=== PATIENT | male | born 1970 | race Asian ===

== ENCOUNTER 2021-06-05 16:02 | Outpatient (REF) | payer OTHER, SELFPAY ==
[2021-06-05 18:11] LABS: MANUAL DIFF FLAG NO
[2021-06-05 18:12] LABS: Basophils Percent Auto 0.4 % (0-2); Eosinophils Absolute Auto 0.1 X10*3/uL (0.0-0.4); Eosinophils Percent Auto 1.1 % (0-4); Hematocrit 42.1 % (42-52); Hemoglobin 14.6 g/dl (14.0-18.0); Imm Gran Abs Auto 0.01 X10*3/uL (0.00-0.03); Imm Gran Pct Auto 0.1 % (0.0-0.4); Lymphocytes Absolute Auto 2.8 X10*3/uL (1.2-4.9); Lymphocytes Percent Auto 38.1 % (20-40); Mean Corpuscular HGB Conc 34.7 g/dl (31.0-36.0); Mean Corpuscular Hemoglobin 32.1 pg (27.0-33.0); Mean Corpuscular Volume 92.5 fL (80-98); Mean Platelet Volume 10.9 fL (9.4-12.4); Monocytes Absolute Auto 0.5 X10*3/uL (0.1-1.2); Neutrophils Absolute Auto 3.9 X10*3/uL (2.0-8.3); Neutrophils Percent Auto 53.3 % (45-73); Platelet Count 188 X10*3/uL (160-400); Red Blood Count 4.55 X10*6/uL (4.60-5.80); Red Cell Distribution Width 11.9 % (11.0-16.0); White Blood Count 7.3 X10*3/uL (4.8-10.8)
[2021-06-05 18:20] LABS: Estimated Average Glucose 292 mg/dL; Hemoglobin A1c % 11.8 %
[2021-06-05 18:31] LABS: Creatinine Urine 114.53 mg/dL; Microalbum/Creatinine Ratio Ur 6.1 ug/mg cr
[2021-06-05 18:36] LABS: Alanine Aminotransferase 11 U/L (0-40); Albumin Level 4.3 g/dL (3.5-5.0); Alkaline Phosphatase 86 U/L (39-117); Anion Gap 12 (12-20); Aspartate Amino Transferase 9 U/L (5-37); Bilirubin Total 0.9 mg/dL (0.0-1.0); Blood Urea Nitrogen 9 mg/dL (9-16); Calcium 9.7 mg/dL (8.4-10.2); Carbon Dioxide 27 mmol/L (22-29); Chloride 102 mmol/L (96-108); Cholesterol 198 mg/dL; Estimated Glomerular Filt Rate > 60; Glucose Random 200 mg/dL (60-115); HDL Cholesterol 43 mg/dL; LDL Cholesterol Calculated 135 mg/dl; Potassium 4.3 mmol/L (3.3-5.1); Sodium 137 mmol/L (135-145); Total Protein 6.9 g/dL (6.5-8.0); Triglycerides 103 mg/dL
== END 2021-06-05 16:03 | disposition home or self-care (01) ==
LOC: HO.LAB 16:02
PROVIDERS: PCP Internal Medicine; Visit Provider Internal Medicine
DX: E78.00 Pure hypercholesterolemia, unspecified (principal); E11.9 Type 2 diabetes mellitus without complications; I25.10 Atherosclerotic heart disease of native coronary artery without angina pectoris
CPT/HCPCS: 36415; 80053; 80061; 82043; 83036; 85025

== ENCOUNTER → 2021-06-07 15:34 | Outpatient (BNVA) | payer OTHER, SELFPAY | PROVIDERS: PCP Internal Medicine; Referring Provider Internal Medicine; Visit Provider Internal Medicine Cardiovascular Disease | DX: I20.8 Other forms of angina pectoris (principal) | CPT/HCPCS: 93005; 99212 ==

== ENCOUNTER → 2021-07-10 13:12 | Outpatient (BNVA) | payer OTHER, SELFPAY | PROVIDERS: PCP Internal Medicine; Referring Provider Internal Medicine; Visit Provider Nurse Practitioner Family | DX: I25.10 Atherosclerotic heart disease of native coronary artery without angina pectoris (principal); E78.5 Hyperlipidemia, unspecified; Z98.890 Other specified postprocedural states; Z95.1 Presence of aortocoronary bypass graft | CPT/HCPCS: 99212 ==

== ENCOUNTER 2021-07-20 15:14 | Outpatient (REF) | payer OTHER, SELFPAY ==
[2021-07-20 15:29] LABS: MANUAL DIFF FLAG NO
[2021-07-20 15:46] LABS: Basophils Percent Auto 0.3 % (0-2); Eosinophils Absolute Auto 0.3 X10*3/uL (0.0-0.4); Eosinophils Percent Auto 3.3 % (0-4); Hematocrit 38.2 % (42-52); Hemoglobin 12.7 g/dl (14.0-18.0); Imm Gran Abs Auto 0.03 X10*3/uL (0.00-0.03); Imm Gran Pct Auto 0.3 % (0.0-0.4); Lymphocytes Absolute Auto 1.9 X10*3/uL (1.2-4.9); Lymphocytes Percent Auto 21.3 % (20-40); Mean Corpuscular HGB Conc 33.2 g/dl (31.0-36.0); Mean Corpuscular Hemoglobin 31.8 pg (27.0-33.0); Mean Corpuscular Volume 95.5 fL (80-98); Mean Platelet Volume 9.7 fL (9.4-12.4); Monocytes Absolute Auto 0.8 X10*3/uL (0.1-1.2); Monocytes Percent Auto 8.8 % (2-11); Neutrophils Absolute Auto 5.9 X10*3/uL (2.0-8.3); Platelet Count 221 X10*3/uL (160-400); Red Cell Distribution Width 13.3 % (11.0-16.0)
[2021-07-20 15:59] LABS: Estimated Average Glucose 154 mg/dL
[2021-07-20 16:08] LABS: Alanine Aminotransferase 21 U/L (0-40); Albumin Level 3.9 g/dL (3.5-5.0); Alkaline Phosphatase 91 U/L (39-117); Anion Gap 11 (12-20); Aspartate Amino Transferase 16 U/L (5-37); Bilirubin Total 0.4 mg/dL (0.0-1.0); Blood Urea Nitrogen 16 mg/dL (9-16); Calcium 8.9 mg/dL (8.4-10.2); Carbon Dioxide 27 mmol/L (22-29); Chloride 107 mmol/L (96-108); Estimated Glomerular Filt Rate > 60; Glucose Random 99 mg/dL (60-115); Potassium 4.4 mmol/L (3.3-5.1); Sodium 141 mmol/L (135-145); Total Protein 6.7 g/dL (6.5-8.0)
== END 2021-07-20 15:15 | disposition home or self-care (01) ==
LOC: HO.LAB 15:14
PROVIDERS: PCP Internal Medicine; Visit Provider Internal Medicine
DX: I25.10 Atherosclerotic heart disease of native coronary artery without angina pectoris (principal); I10 Essential (primary) hypertension; E11.9 Type 2 diabetes mellitus without complications; Z95.1 Presence of aortocoronary bypass graft
CPT/HCPCS: 36415; 80053; 83036; 85025

== ENCOUNTER → 2021-08-14 13:12 | Outpatient (REF) | payer OTHER, SELFPAY ==
--- NOTE | 2021-08-14 13:16 | CA_ITS ---
Transthoracic Echocardiogram Patient (Last, First, Middle): Vince Bruno, Gender: Male Date of : 1970 Age: 50 Procedure Date: 08/14/2021 Procedure Type: Transthoracic Echocardiogram Location: OP Height: 157.48 cm Weight: 76.01 kg BSA: 1.77 m2 Heart Rate: bpm BP: 102 / 70 mmHg Carpenter Packing: SHERMAN Referring MD: Myra Araujo BOOTH USHERRyan Symptoms: Z95.1 - Presence of aortocoronary bypass graft Conclusions: - 1. Low normal LV systolic function with normal filling pattern with regional wall motion abnormality in RCA territory 2. Normal cardiac valvular Doppler 3. Normal RV systolic pressure 4. No gross pericardial effusion Findings Left Ventricle Normal left ventricular cavity size. There is normal left ventricular wall thickness. The left ventricular systolic function is low normal. The visually estimated ejection fraction is between 50-55%. Spectral Doppler is indicative of a normal filling pattern. Wall Motion Rest Echo Findings The inferoseptal wall and basal inferior segment are hypokinetic. The apical septum is akinetic. All other scored wall segments showed normal motion. Right Ventricle Normal right ventricular cavity size and systolic function. Atria Both atria are normal in size. There is no evidence of interatrial shunt. Aortic Valve Normal aortic valve structure and function. There is no aortic valve stenosis. There is no aortic valve regurgitation. Mitral Valve Normal mitral valve structure and function. There is trace mitral valve regurgitation. There is no mitral valve stenosis. Pulmonic Valve The pulmonic valve is likely normal. There is trace pulmonic valve regurgitation. Tricuspid Valve Normal tricuspid valve structure. There is trace tricuspid valve regurgitation. The right ventricular systolic pressure is normal. The right ventricular systolic pressure is 24 mmHg. Normal right atrial pressure. There is no evidence of pulmonary hypertension. Great Vessels All visible segments of the aorta are normal in size. The pulmonary artery was not well visualized. Venous The inferior vena cava is normal in size and collapses greater than 50% with inspiration. Pericardium/Pleural There is no evidence of pericardial effusion. Prior Study Comparison Changes noted compared to prior study dated: 07/15/2019. Regional wall motion abnormalities are noted on this study Measurements 2D Linear Measurements IVSd: 0.96 0.6-0.9/0.6-1.0 cm LVIDd: 4.38 3.9-5.3/4.2-5.9 cm LVIDd Index: 2.47 2.4-3.2/2.2-3.1 cm/m2 LVIDs: 2.70 2.0-3.6 cm LVPWd: 1.13 0.7-1.1 cm Ao Root: 3.10 2.1-3.5 cm LA Diam: 3.90 2.7-3.8/3.0-4.0 cm LAIDs Index: 2.20 1.5-2.3 cm/m2 LV Mass: 193.89 67-162/88-224 g LV Mass Index: 109.54 43-95/49-115 g/m2 LVOT Diam: 2.00 3.0+(-)1.3 cm 2D Systolic Function EF 4C: 54.90 >55% Mitral Valve MV Pk E: 0.60 MV PK A: 0.36 MV Decel Time: 228.00 E/A: 1.70 E'Lateral: 12.70 E'Medial: 5.33 E/E' Med: 11.30 E/E' Lat: 4.70 PHT: 67.00 MVA PHT: 3.28 Decel Blackford: 2.63 Aortic Valve AoV Pk Walter: 1.14 AoV Pk Grad: 5.00 LVOT LVOT Pk Walter: 1.08 LVOT Mn Walter: 0.74 LVOT VTI: 0.25 LVOT Pk Grad: 5.00 LVOT Mn Grad: 3.00 LVOT Diam: 2.00 LVOT Area: 3.14 Diastolic Function MV Pk E: 0.60 MV Pk A: 0.36 E/A: 1.70 E'Medial: 5.33 E/E' Med: 11.30 E' Laterial: 12.70 E/E' Lat: 4.70 Right Ventricle TAPSE (mm): 1.47 Tricuspid Valve TR Pk Walter: 2.29 TR Pk Grad: 21.00 RA Press: 3.00 RVSP: 24.00 Great Vessels Aorta Ao Root-2D: 3.10 2.0-3.7 cm Updated in Other Vendor System with Status of Final Keaton Rodriguez MD electronically signed on 08/16/2021 9:52:20 AM with status of Final
== END ==
LOC: HO.CARD 13:12
PROVIDERS: Visit Provider Nurse Practitioner Family
DX: I25.10 Atherosclerotic heart disease of native coronary artery without angina pectoris (principal); Z95.1 Presence of aortocoronary bypass graft
CPT/HCPCS: 93306

== ENCOUNTER 2021-09-27 13:25 | Outpatient (REF) | payer OTHER, SELFPAY ==
[2021-09-27 15:33] LABS: Alanine Aminotransferase 29 U/L (0-40); Albumin Level 4.1 g/dL (3.5-5.0); Alkaline Phosphatase 80 U/L (39-117); Anion Gap 10 (12-20); Aspartate Amino Transferase 15 U/L (5-37); Bilirubin Total 0.5 mg/dL (0.0-1.0); Blood Urea Nitrogen 14 mg/dL (9-16); Calcium 9.4 mg/dL (8.4-10.2); Carbon Dioxide 29 mmol/L (22-29); Chloride 107 mmol/L (96-108); Cholesterol 108 mg/dL; Estimated Glomerular Filt Rate > 60; Glucose Fasting 118 mg/dL (60-99); HDL Cholesterol 32 mg/dL; LDL Cholesterol Calculated 63 mg/dl; Potassium 4.6 mmol/L (3.3-5.1); Sodium 141 mmol/L (135-145); Total Protein 6.9 g/dL (6.5-8.0); Triglycerides 69 mg/dL
== END 2021-09-27 13:26 | disposition home or self-care (01) ==
LOC: HO.LAB 13:25
PROVIDERS: PCP Internal Medicine; Referring Provider Internal Medicine; Visit Provider Nurse Practitioner Family
DX: I25.10 Atherosclerotic heart disease of native coronary artery without angina pectoris (principal); E78.5 Hyperlipidemia, unspecified; Z95.1 Presence of aortocoronary bypass graft; Z79.899 Other long term (current) drug therapy
CPT/HCPCS: 36415; 80053; 80061; 93005; 99212

== ENCOUNTER → 2021-10-04 11:35 | Outpatient (REF) | payer OTHER, SELFPAY ==
--- NOTE | 2021-10-04 11:43 | CA_ITS ---
Transthoracic Echocardiogram Patient (Last, First, Middle): Vince Bruno, Gender: Male Date of : 1970 Age: 51 Procedure Date: 10/04/2021 Procedure Type: Transthoracic Echocardiogram Location: OP Height: 157.4 cm Weight: 76. kg BSA: 1.77 m2 Heart Rate: bpm BP: 104 / 62 mmHg Business Intelligence Developer: SHERMAN Referring MD: Myra Araujo ENGRAVER WOOD-C Symptoms: Z95.1 - Presence of aortocoronary bypass graft Study Quality: Good ECG Rhythm: Sinus Conclusions: - The left ventricular systolic function is hyperdynamic. The calculated ejection fraction is 72% by biplane method. - There is mildly decreased right ventricular systolic function. Findings Procedure Information Contrast agent, definity, is being given per protocol without apparent complications. Left Ventricle Normal left ventricular cavity size. The left ventricular systolic function is hyperdynamic. The calculated ejection fraction is 72% by biplane method. There is no evidence of regional wall motion abnormalities. Right Ventricle Normal right ventricular cavity size. There is mildly decreased right ventricular systolic function. TAPSE 1.65cm. Prior Study Comparison Changes noted compared to prior study dated: 08/14/2021. Previously described wall motion abnormalities not appreciated. LVEF appears higher. Measurements 2D Linear Measurements LVIDd: 4.02 3.9-5.3/4.2-5.9 cm LVIDs: 2.92 2.0-3.6 cm 2D Systolic Function EF 4C: 67.60 >55% EF 2C: 77.00 >55% EF BiP: 72.20 >55% Mitral Valve MV Pk E: 0.58 MV PK A: 0.51 MV Decel Time: 217.00 E/A: 1.10 E'Lateral: 11.20 E'Medial: 4.90 E/E' Med: 11.80 E/E' Lat: 5.20 PHT: 64.00 MVA PHT: 3.44 Decel Power: 2.66 Diastolic Function MV Pk E: 0.58 MV Pk A: 0.51 E/A: 1.10 E'Medial: 4.90 E/E' Med: 11.80 E' Laterial: 11.20 E/E' Lat: 5.20 Updated in Other Vendor System with Status of Final Reinaldo Prasad MD electronically signed on 10/06/2021 9:12:47 AM with status of Final
== END ==
LOC: HO.CARD 11:35
PROVIDERS: Visit Provider Nurse Practitioner Family
DX: Z95.1 Presence of aortocoronary bypass graft (principal)
CPT/HCPCS: 93308; Q9957

== ENCOUNTER 2021-10-15 16:10 | Outpatient (REF) | payer OTHER, SELFPAY ==
[2021-10-15 16:31] LABS: MANUAL DIFF FLAG NO
[2021-10-15 16:35] LABS: Basophils Percent Auto 0.2 % (0-2); Eosinophils Absolute Auto 0.1 X10*3/uL (0.0-0.4); Hematocrit 47.5 % (42.0-52.0); Imm Gran Abs Auto 0.03 X10*3/uL (0.00-0.03); Imm Gran Pct Auto 0.3 % (0.0-0.4); Lymphocytes Absolute Auto 2.8 X10*3/uL (1.2-4.9); Lymphocytes Percent Auto 30.4 % (20-40); Mean Corpuscular HGB Conc 33.7 g/dl (31.0-36.0); Mean Corpuscular Hemoglobin 30.7 pg (27.0-33.0); Mean Platelet Volume 10.2 fL (9.4-12.4); Monocytes Absolute Auto 0.8 X10*3/uL (0.1-1.2); Monocytes Percent Auto 8.6 % (2-11); Neutrophils Absolute Auto 5.6 x10*3/uL (2.0-8.3); Neutrophils Percent Auto 59.5 % (45-73); Platelet Count 184 X10*3/uL (160-400); Red Blood Count 5.22 X10*6/uL (4.60-5.80); Red Cell Distribution Width 11.8 % (11.0-16.0); White Blood Count 9.4 X10*3/uL (4.8-10.8)
[2021-10-15 16:53] LABS: Estimated Average Glucose 143 mg/dL; Hemoglobin A1c % 6.6 %
[2021-10-15 17:21] LABS: Alanine Aminotransferase 26 U/L (0-40); Albumin Level 4.3 g/dL (3.5-5.0); Alkaline Phosphatase 77 U/L (39-117); Anion Gap 11 (12-20); Aspartate Amino Transferase 18 U/L (5-37); Bilirubin Total 0.8 mg/dL (0.0-1.0); Blood Urea Nitrogen 13 mg/dL (9-16); Calcium 9.8 mg/dL (8.4-10.2); Carbon Dioxide 30 mmol/L (22-29); Chloride 107 mmol/L (96-108); Cholesterol 107 mg/dL; Estimated Glomerular Filt Rate > 60; Glucose Random 79 mg/dL (60-115); HDL Cholesterol 33 mg/dL; LDL Cholesterol Calculated 62 mg/dl; Potassium 4.4 mmol/L (3.3-5.1); Sodium 144 mmol/L (135-145); Total Protein 7.2 g/dL (6.5-8.0); Triglycerides 64 mg/dL
== END 2021-10-15 16:11 | disposition home or self-care (01) ==
LOC: HO.LAB 16:10
PROVIDERS: PCP Internal Medicine; Visit Provider Internal Medicine
DX: I25.10 Atherosclerotic heart disease of native coronary artery without angina pectoris (principal); E11.9 Type 2 diabetes mellitus without complications; E78.00 Pure hypercholesterolemia, unspecified
CPT/HCPCS: 36415; 80053; 80061; 83036; 85025

== ENCOUNTER → 2022-04-15 14:44 | Outpatient (BNVA) | payer OTHER, SELFPAY | PROVIDERS: PCP Internal Medicine; Referring Provider Internal Medicine; Visit Provider Internal Medicine Cardiovascular Disease | DX: I25.10 Atherosclerotic heart disease of native coronary artery without angina pectoris (principal); Z95.1 Presence of aortocoronary bypass graft | CPT/HCPCS: 93005; 99212 ==

== ENCOUNTER 2022-04-19 16:03 | Outpatient (REF) | payer OTHER, SELFPAY ==
[2022-04-19 16:31] LABS: MANUAL DIFF FLAG NO
[2022-04-19 17:09] LABS: Basophils Percent Auto 0.2 % (0-2); Eosinophils Absolute Auto 0.1 X10*3/uL (0.0-0.4); Hematocrit 43.8 % (42.0-52.0); Hemoglobin 15.1 g/dl (14.0-18.0); Imm Gran Abs Auto 0.03 X10*3/uL (0.00-0.03); Imm Gran Pct Auto 0.3 % (0.0-0.4); Lymphocytes Absolute Auto 2.1 X10*3/uL (1.2-4.9); Lymphocytes Percent Auto 23.2 % (20-40); Mean Corpuscular HGB Conc 34.5 g/dl (31.0-36.0); Mean Corpuscular Hemoglobin 30.8 pg (27.0-33.0); Mean Corpuscular Volume 89.2 fL (80.0-98.0); Monocytes Percent Auto 11.3 % (2-11); Neutrophils Absolute Auto 5.7 x10*3/uL (2.0-8.3); Platelet Count 223 X10*3/uL (160-400); Red Blood Count 4.91 X10*6/uL (4.60-5.80); Red Cell Distribution Width 11.8 % (11.0-16.0); White Blood Count 8.9 X10*3/uL (4.8-10.8)
[2022-04-19 17:35] LABS: Alanine Aminotransferase 33 U/L (0-40); Albumin Level 4.2 g/dL (3.5-5.0); Alkaline Phosphatase 84 U/L (39-117); Anion Gap 17 (12-20); Aspartate Amino Transferase 32 U/L (5-37); Bilirubin Total 0.9 mg/dL (0.0-1.0); Blood Urea Nitrogen 14 mg/dL (9-16); Calcium 9.4 mg/dL (8.4-10.2); Carbon Dioxide 21 mmol/L (22-29); Chloride 106 mmol/L (96-108); Estimated Glomerular Filt Rate > 60; Glucose Random 81 mg/dL (60-115); Potassium 4.2 mmol/L (3.3-5.1); Sodium 140 mmol/L (135-145); Total Protein 6.9 g/dL (6.5-8.0)
[2022-04-19 17:48] LABS: Estimated Average Glucose 143 mg/dL; Hemoglobin A1c % 6.6 %
== END 2022-04-19 16:04 | disposition home or self-care (01) ==
LOC: HO.LAB 16:03
PROVIDERS: PCP Internal Medicine; Visit Provider Internal Medicine
DX: I25.10 Atherosclerotic heart disease of native coronary artery without angina pectoris (principal); E78.00 Pure hypercholesterolemia, unspecified; E11.9 Type 2 diabetes mellitus without complications
CPT/HCPCS: 36415; 80053; 83036; 85025

== ENCOUNTER → 2022-07-22 15:12 | Outpatient (BNVA) | payer OTHER, SELFPAY | PROVIDERS: PCP Internal Medicine; Referring Provider Internal Medicine; Visit Provider Internal Medicine Cardiovascular Disease | DX: I25.10 Atherosclerotic heart disease of native coronary artery without angina pectoris (principal); E78.5 Hyperlipidemia, unspecified; Z95.1 Presence of aortocoronary bypass graft | CPT/HCPCS: 99212 ==

== ENCOUNTER → 2022-08-14 14:50 | Outpatient (REF) | payer OTHER, SELFPAY ==
--- NOTE | 2022-08-14 14:54 | HM_ITS ---
Conclusion: 1. Patient was monitored for total period of 3 days and 1 hour 2. Baseline was normal sinus with average heart of 78 beats per minute 3. No significant pauses or bradycardia noted 4. Very rare ectopy noted 5. Patient reported 5 events with racing of the heart and shortness of breath correlating with sinus rhythm MTDD
== END ==
LOC: HO.CARD 14:50
PROVIDERS: PCP Internal Medicine; Visit Provider Internal Medicine
DX: R00.2 Palpitations (principal); Z95.5 Presence of coronary angioplasty implant and graft
CPT/HCPCS: 93242

== ENCOUNTER 2022-10-08 12:36 | Outpatient (REF) | payer OTHER, SELFPAY ==
[2022-10-08 13:02] LABS: MANUAL DIFF FLAG NO
[2022-10-08 13:11] LABS: Basophils Absolute Auto 0.1 X10*3/uL (0.0-0.2); Basophils Percent Auto 0.8 % (0-2); Eosinophils Absolute Auto 0.1 X10*3/uL (0.0-0.4); Eosinophils Percent Auto 1.6 % (0-4); Hematocrit 44.7 % (42.0-52.0); Hemoglobin 15.2 g/dl (14.0-18.0); Imm Gran Abs Auto 0.02 X10*3/uL (0.00-0.03); Imm Gran Pct Auto 0.3 % (0.0-0.4); Lymphocytes Percent Auto 31.8 % (20-40); Mean Corpuscular Hemoglobin 30.8 pg (27.0-33.0); Mean Corpuscular Volume 90.7 fL (80.0-98.0); Mean Platelet Volume 9.7 fL (9.4-12.4); Monocytes Absolute Auto 0.7 X10*3/uL (0.1-1.2); Monocytes Percent Auto 11.4 % (2-11); Neutrophils Absolute Auto 3.4 x10*3/uL (2.0-8.3); Neutrophils Percent Auto 54.1 % (45-73); Platelet Count 234 X10*3/uL (160-400); Red Blood Count 4.93 X10*6/uL (4.60-5.80); Red Cell Distribution Width 12.1 % (11.0-16.0); White Blood Count 6.3 X10*3/uL (4.8-10.8)
[2022-10-08 13:59] LABS: Estimated Average Glucose 123 mg/dL; Hemoglobin A1c % 5.9 %
[2022-10-08 14:40] LABS: Alanine Aminotransferase 16 U/L (0-40); Alkaline Phosphatase 117 U/L (39-117); Anion Gap 10 (12-20); Aspartate Amino Transferase 16 U/L (5-37); Bilirubin Total 0.6 mg/dL (0.0-1.0); Blood Urea Nitrogen 20 mg/dL (9-16); Calcium 8.8 mg/dL (8.4-10.2); Carbon Dioxide 24 mmol/L (22-29); Chloride 109 mmol/L (96-108); Cholesterol 133 mg/dL; Estimated Glomerular Filt Rate > 60; Glucose Fasting 134 mg/dL (60-99); HDL Cholesterol 40 mg/dL; LDL Cholesterol Calculated 86 mg/dl; Potassium 4.5 mmol/L (3.3-5.1); Sodium 138 mmol/L (135-145); Total Protein 6.6 g/dL (6.5-8.0); Triglycerides 38 mg/dL
[2022-10-08 14:55] LABS: Prostate Specific Antigen 0.34 ng/mL (<0.05-4.0)
[2022-10-08 15:33] LABS: Creatinine Urine 88.07 mg/dL; Microalbumin Urine < 5.0 mg/L
== END 2022-10-08 12:37 | disposition home or self-care (01) ==
LOC: HO.LAB 12:36
PROVIDERS: PCP Internal Medicine; Visit Provider Internal Medicine
DX: Z12.5 Encounter for screening for malignant neoplasm of prostate (principal); E78.00 Pure hypercholesterolemia, unspecified; I25.10 Atherosclerotic heart disease of native coronary artery without angina pectoris; E11.9 Type 2 diabetes mellitus without complications
CPT/HCPCS: 36415; 80053; 80061; 82043; 83036; 84153; 85025

== ENCOUNTER 2022-12-23 11:01 | Outpatient (REF) | payer OTHER, SELFPAY ==
[2022-12-23 14:03] LABS: MANUAL DIFF FLAG NO
[2022-12-23 14:18] LABS: Basophils Percent Auto 0.6 % (0-2); Eosinophils Absolute Auto 0.1 X10*3/uL (0.0-0.4); Hematocrit 46.4 % (42.0-52.0); Hemoglobin 15.8 g/dl (14.0-18.0); Imm Gran Abs Auto 0.02 X10*3/uL (0.00-0.03); Imm Gran Pct Auto 0.3 % (0.0-0.4); Lymphocytes Absolute Auto 2.1 X10*3/uL (1.2-4.9); Lymphocytes Percent Auto 30.4 % (20-40); Mean Corpuscular HGB Conc 34.1 g/dl (31.0-36.0); Mean Corpuscular Hemoglobin 31.1 pg (27.0-33.0); Mean Corpuscular Volume 91.3 fL (80.0-98.0); Mean Platelet Volume 10.4 fL (9.4-12.4); Monocytes Absolute Auto 0.8 X10*3/uL (0.1-1.2); Monocytes Percent Auto 10.8 % (2-11); Neutrophils Absolute Auto 3.9 x10*3/uL (2.0-8.3); Neutrophils Percent Auto 55.9 % (45-73); Platelet Count 211 X10*3/uL (160-400); Red Blood Count 5.08 X10*6/uL (4.60-5.80); Red Cell Distribution Width 12.1 % (11.0-16.0); White Blood Count 6.9 X10*3/uL (4.8-10.8)
[2022-12-23 14:29] LABS: Alanine Aminotransferase 21 U/L (0-40); Albumin Level 4.1 g/dL (3.5-5.0); Alkaline Phosphatase 110 U/L (39-117); Anion Gap 9 (12-20); Aspartate Amino Transferase 20 U/L (5-37); Bilirubin Total 0.7 mg/dL (0.0-1.0); Blood Urea Nitrogen 23 mg/dL (9-16); Carbon Dioxide 27 mmol/L (22-29); Chloride 108 mmol/L (96-108); Estimated Glomerular Filt Rate > 60; Glucose Random 144 mg/dL (60-115); Potassium 4.9 mmol/L (3.3-5.1); Sodium 139 mmol/L (135-145); Total Protein 6.6 g/dL (6.5-8.0)
[2022-12-23 14:35] LABS: Estimated Average Glucose 143 mg/dL; Hemoglobin A1c % 6.6 %
== END 2022-12-23 11:02 | disposition home or self-care (01) ==
LOC: HO.10HDL 11:01
PROVIDERS: Visit Provider Internal Medicine
DX: I25.10 Atherosclerotic heart disease of native coronary artery without angina pectoris (principal); I10 Essential (primary) hypertension; E11.9 Type 2 diabetes mellitus without complications
CPT/HCPCS: 36415; 80053; 83036; 85025

== ENCOUNTER → 2023-02-18 13:38 | Outpatient (BNVA) | payer OTHER, SELFPAY | PROVIDERS: PCP Internal Medicine; Referring Provider Internal Medicine; Visit Provider Nurse Practitioner Family | DX: I25.10 Atherosclerotic heart disease of native coronary artery without angina pectoris (principal); R94.31 Abnormal electrocardiogram [ECG] [EKG]; E78.5 Hyperlipidemia, unspecified; Z95.1 Presence of aortocoronary bypass graft; Z79.02 Long term (current) use of antithrombotics/antiplatelets; Z79.82 Long term (current) use of aspirin; Z79.899 Other long term (current) drug therapy | CPT/HCPCS: 93005; 99212 ==

== ENCOUNTER 2023-03-21 08:38 | Outpatient (REF) | payer OTHER, SELFPAY ==
[2023-03-21 09:51] LABS: Cholesterol 123 mg/dL; HDL Cholesterol 37 mg/dL; LDL Cholesterol Calculated 77 mg/dl; Triglycerides 48 mg/dL
== END 2023-03-21 08:39 | disposition home or self-care (01) ==
LOC: HO.LAB 08:38
PROVIDERS: PCP Internal Medicine; Visit Provider Nurse Practitioner Family
DX: I25.10 Atherosclerotic heart disease of native coronary artery without angina pectoris (principal)
CPT/HCPCS: 36415; 80061

== ENCOUNTER 2023-04-21 14:05 | Outpatient (REF) | payer OTHER, SELFPAY ==
--- NOTE | ~2023-04-21 | US_ITS ---
EXAMINATION: ARTERIAL DUPLEX BILATERAL LEGS CLINICAL INFORMATION: Muscle spasm of calves. COMPARISON: None TECHNIQUE: Duplex Doppler of the bilateral lower extremity arterial systems was performed. FINDINGS: RIGHT: Common femoral: PSV 103 cm/s. Physiologic monophasic waveform. Deep femoral: PSV 102 cm/s. Physiologic monophasic waveform. Proximal superficial femoral: PSV 81 cm/s. Physiologic monophasic waveform. Mid superficial femoral: PSV 79 cm/s. Triphasic waveform. Distal superficial femoral: PSV 88 cm/s. Physiologic monophasic waveform. Popliteal: PSV 60 cm/s. Physiologic monophasic waveform. Posterior tibial: PSV 87 cm/s. Physiologic monophasic waveform. Peroneal: PSV 42 cm/s. Physiologic monophasic waveform. LEFT: Common femoral: PSV 81 cm/s. Triphasic waveform. Deep femoral: PSV 57 cm/s. Monophasic waveform. Proximal superficial femoral: PSV 109 cm/s. Triphasic waveform. Mid superficial femoral: PSV 78 cm/s. Triphasic waveform. Distal superficial femoral: PSV 82 cm/s. Triphasic waveform. Popliteal: PSV 50 cm/s. Triphasic waveform. Posterior tibial: PSV 51 cm/s. Triphasic waveform. Peroneal: PSV 67 cm/s. Triphasic waveform. US/US arterial duplex LE BI IMPRESSION: No evidence of hemodynamically significant peripheral arterial disease. Physiologic monophasic waveforms in the right lower extremity may be seen with exercise or increased body temperature.
== END 2023-04-21 14:06 | disposition home or self-care (01) ==
LOC: HO.US 14:05
PROVIDERS: PCP Internal Medicine; Visit Provider Internal Medicine
DX: M62.831 Muscle spasm of calf (principal)
CPT/HCPCS: 93925

== ENCOUNTER 2023-08-19 14:13 | Outpatient (AMB) | payer OTHER, SELFPAY ==
[2023-08-19 14:29] VITALS: BP 104/72; PULSE 64; BMI 32.7
--- NOTE | 2023-08-19 14:29 | A.OFFVIS_ITS ---
Intake Vital Signs 08/19/23 14:29 Height 5 ft 2 in Weight 178 lb 9.191 oz BMI 32.7 BP 104/72 Blood Pressure Location Lt brachial Position Sitting Pulse 64 Pulse Source Pulse Oximeter Intake Visit Reasons: 6 mth / use ipad if no daughter Dance Costume Designer Required: Yes Dance Costume Designer Language: Mandarin [place] Dance Costume Designer Name: ABE fay [id number] Allergies No Known Allergies [No Known Allergies*] Allergy (Verified 02/18/23 13:54) Medication List - Last Reconciled 08/19/23 by Myra Araujo NP-C aspirin 81 mg PO DAILY atorvastatin 40 mg PO DAILY clopidogrel 75 mg PO DAILY ezetimibe (Zetia) 10 mg PO DAILY insulin glargine (Lantus Solostar U-100 Insulin) 36 units subcut QPM metformin 500 mg PO BID metoprolol tartrate 25 mg PO BID HPI 6 mth / use ipad if no daughter HPI Details Vince is a 52-year-old male with past medical history of hyperlipidemia, CAD, 4 vessel Coronary artery bypass grafting 06/2021 who presents for follow- up. Today he reports that he does have some shortness of breath with activity. He has been walking for 30-40 minutes each day. He finds that he does get short of breath with this activity. He is not having short of breath with normal ADLs. In the evenings at times he will notice a sharp pain to his left chest region. No exertional chest discomfort. No other chest wall type discomfort. No heart palpitations, dizziness, presyncope, syncope, PND, orthopnea or edema. He is t aking all meds as directed. No bleeding issues reported. 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 Certified [place] japanese interpreter used. [facility] Medical History Hypercholesteremia CAD (coronary artery disease) Surgical History S/P CABG x 4 History of cardiac cath Family History Father Diabetes Mother No problems noted. Social History Alcohol intake: current Alcohol intake frequency: 0-2 drinks per day Alcohol type: wine Patient Tobacco Use Status: Former Tobacco user Quit Date: 2019 Years Smoked: 20 +/- Review of Systems Const All systems reviewed & are unremarkable except as noted in HPI and below ENT Reports dizziness Card Details: quick sharp pains to chest Denies chest pain, Denies chest pain at rest, Denies chest pain with activity, Denies rapid heart rate, Denies pedal edema, Denies edema, Denies leg edema, Denies lightheadedness, Denies palpitations, Denies dyspnea, Reports dyspnea on exertion and Denies orthopnea Resp Denies cough, Denies dyspnea and Reports dyspnea on exertion GI Denies hematochezia and Denies change in stool character Musc Denies abnormal gait, Denies limited range of motion, Denies muscle cramps, Denies muscle weakness, Denies numbness, Denies radiating pain into limb, Denies stiffness and Denies tingling Neuro Denies abnormal gait, Reports dizziness, Denies numbness and Denies tingling Endo Denies palpitations Physical Exam Vital Signs: Last Vital Signs Pulse 64 08/19/23 14:29 BP 104/72 08/19/23 14:29 BMI result Body Mass Index 32.7 Const General: cooperative, healthy appearing, comfortable and no acute distress Orientation/consciousness: patient oriented x3 Neck Neck: Yes normal visual inspection Resp Effort & Inspection: normal respiratory effort Auscultation: clear to auscultation bilaterally, no crackles, no rales, no rhonchi and no wheezes Cardio Jugular venous distension: no JVD Rate: regular rate Rhythm: regular rhythm Heart sounds: S1 normal heart sound present, S2 normal heart sound present, no murmurs and no rubs Skin General skin exam: no rashes or lesions noted Neuro General: patient oriented x3 Extrem General: Yes normal to inspection, No no pedal edema and No calf tenderness Psych Appearance: grossly normal Mental Status: mental status grossly normal Speech and movement: Normal speech and movement present Assessment & Plan Assessment & Plan (1) CAD (coronary artery disease): Code(s): I25.10 - Atherosclerotic heart disease of [place] coronary artery without angina pectoris Plan: History of CAD with cardiac catheterization in 2019 showing moderate left circumflex and distal RCA disease, manage medically. Development of stable angina leading to repeat cardiac catheterization on 06/19/2021 showing significant CAD including left main 65-70% stenosis. He then underwent a 4 v essel coronary artery bypass grafting on 06/25/2021. Echocardiogram done on 08/14/2021 showed EF 50-55% with a wall motion abnormality in the RCA territory. A repeat echocardiogram done 10/04/2021 showed EF 72%, no regional wall motion abnormalities. Today he reports some shortness of breath when he does his daily walking. He also notices quick stabbing pains to his left chest at times in the evenings. He denies exertional chest discomfort. On exam he has no clinical signs indicating heart failure. His shortness of breath may still be due to deconditioning. Instructed on continuing with his daily walks, including walking on inclines and stairs as able. His sharp chest pain is atypical for angina. Will continue current med management for stable CAD including aspirin indefinitely, atorvastatin, metoprolol. He has been on Plavix over 1 year post Coronary artery bypass grafting. Will stop at this time. [place] LDL goal less than 70. Last LDL 77 on 03/21/23. Continue exercise and weight control. Cardiology follow-up in 6 months, sooner if needed (2) S/P CABG x 4: Comment: 06/25/2021, 4 vessel Coronary artery bypass grafting, hodges to mid LAD, SVG to distal RCA, left radial artery to OM and SVG to ramus Code(s): Z95.1 - Presence of aortocoronary bypass graft (3) Abnormal electrocardiogram [ECG] [EKG]: Code(s): R94.31 - Abnormal electrocardiogram [ECG] [EKG] Plan: As above (4) Hyperlipidemia: Code(s): E78.5 - Hyperlipidemia, unspecified Plan: As above Medications: New metoprolol succinate ER 50 mg PO DAILY 90 tabs 3RF Discontinued metoprolol tartrate Discontinued Reason: Doctor's Order 25 mg PO BID 180 tabs 2RF I20.8 - Other forms of angina pectoris clopidogrel Discontinued Reason: Doctor's Order 75 mg PO DAILY 90 tabs 2RF I20.8 - Other forms of angina pectoris Coding Level of Care Code Est Pt Level 4 (23404) Diagnoses CAD (coronary artery disease) I25.10 S/P CABG x 4 Z95.1 Abnormal electrocardiogram [ECG] [EKG] R94.31 Hyperlipidemia E78.5 Time Spent (min) 30
== END 2023-08-19 15:15 | disposition home or self-care (01) ==
PROVIDERS: Visit Provider Nurse Practitioner Family
DX: I25.10 Atherosclerotic heart disease of native coronary artery without angina pectoris (principal); Z95.1 Presence of aortocoronary bypass graft; R94.31 Abnormal electrocardiogram [ECG] [EKG]; E78.5 Hyperlipidemia, unspecified
CPT/HCPCS: 99214

== ENCOUNTER → 2023-08-19 14:13 | Outpatient (BNVA) | payer OTHER, SELFPAY | PROVIDERS: Visit Provider Nurse Practitioner Family | DX: I25.10 Atherosclerotic heart disease of native coronary artery without angina pectoris (principal); E78.5 Hyperlipidemia, unspecified; R94.31 Abnormal electrocardiogram [ECG] [EKG]; Z95.1 Presence of aortocoronary bypass graft | CPT/HCPCS: 99212 ==

== ENCOUNTER 2023-10-21 16:10 | Outpatient (REF) | payer OTHER, SELFPAY ==
[2023-10-21 16:30] LABS: MANUAL DIFF FLAG NO
[2023-10-21 16:46] LABS: Basophils Absolute Auto 0.1 X10*3/uL (0.0-0.2); Basophils Percent Auto 0.6 % (0-2); Eosinophils Absolute Auto 0.1 X10*3/uL (0.0-0.4); Eosinophils Percent Auto 1.5 % (0-4); Hematocrit 46.1 % (42.0-52.0); Hemoglobin 15.9 g/dl (14.0-18.0); Imm Gran Abs Auto 0.04 X10*3/uL (0.00-0.03); Imm Gran Pct Auto 0.5 % (0.0-0.4); Lymphocytes Absolute Auto 2.3 X10*3/uL (1.2-4.9); Mean Corpuscular HGB Conc 34.5 g/dl (31.0-36.0); Mean Corpuscular Hemoglobin 31.5 pg (27.0-33.0); Mean Corpuscular Volume 91.5 fL (80.0-98.0); Monocytes Absolute Auto 0.8 X10*3/uL (0.1-1.2); Monocytes Percent Auto 9.4 % (2-11); Neutrophils Absolute Auto 5.4 x10*3/uL (2.0-8.3); Platelet Count 223 X10*3/uL (160-400); Red Blood Count 5.04 X10*6/uL (4.60-5.80); Red Cell Distribution Width 11.7 % (11.0-16.0); White Blood Count 8.8 X10*3/uL (4.8-10.8)
[2023-10-21 16:50] LABS: Estimated Average Glucose 128 mg/dL; Hemoglobin A1c % 6.1 % (<6.0)
[2023-10-21 17:20] LABS: Alanine Aminotransferase 18 U/L (0-40); Albumin Level 4.3 g/dL (3.5-5.0); Alkaline Phosphatase 83 U/L (39-117); Anion Gap 9 (12-20); Aspartate Amino Transferase 14 U/L (5-37); Bilirubin Total 0.6 mg/dL (0.0-1.0); Blood Urea Nitrogen 17 mg/dL (9-16); Calcium 9.5 mg/dL (8.4-10.2); Carbon Dioxide 30 mmol/L (22-29); Chloride 106 mmol/L (96-108); Estimated Glomerular Filt Rate > 60; Glucose Random 116 mg/dL (60-115); Potassium 4.5 mmol/L (3.3-5.1); Sodium 140 mmol/L (135-145); Total Protein 7.5 g/dL (6.5-8.0)
[2023-10-21 17:28] LABS: Troponin-I High Sensitivity 3.5 ng/L (<3.5-35.0)
== END 2023-10-21 16:11 | disposition home or self-care (01) ==
LOC: HO.LAB 16:10
PROVIDERS: PCP Internal Medicine; Visit Provider Internal Medicine
DX: I25.10 Atherosclerotic heart disease of native coronary artery without angina pectoris (principal); I10 Essential (primary) hypertension; E11.9 Type 2 diabetes mellitus without complications
CPT/HCPCS: 36415; 80053; 82550; 83036; 84484; 85025

== ENCOUNTER 2023-10-31 09:27 | Outpatient (AMB) | payer OTHER, SELFPAY ==
--- NOTE | 2023-10-31 09:38 | MHC.OFFVIS ---
Intake Vital Signs 10/31/23 09:40 Height 5 ft 2 in Weight 182 lb 15.739 oz BMI 33.5 BP 110/68 Blood Pressure Location Lt brachial Position Sitting Pulse 81 Intake Visit Reasons: f/u Per HS Intake Note: follow up Collar Closer Lockstitch Required: Yes Collar Closer Lockstitch Name: Arthur [id number] Accompanied by: Self / Same As Patient Allergies No Known Allergies [No Known Allergies*] Allergy (Verified 10/31/23 09:40) Medication List - Last Reconciled 10/31/23 by FARHEEN Coffman aspirin 81 mg PO DAILY atorvastatin 40 mg PO DAILY ezetimibe (Zetia) 10 mg PO DAILY insulin glargine (Lantus Solostar U-100 Insulin) 36 units subcut QPM metformin 500 mg PO BID metoprolol succinate ER 50 mg PO DAILY HPI f/u Per HS HPI Details Vince is a 53-year-old male with past medical history of hyperlipidemia, CAD, 4 vessel coronary artery bypass grafting 06/2021 who presents for follow-up. Today he reports that he has been having discomfort in his chest, upper back and shoulders. Even with the use of a Mandarin spanish interpreter/translator description of his symptoms are difficult to obtain. It seems that he has tightness across his chest that comes and goes. At times he needs to take a deep breath and if he does the tightness improves some. He notice his his symptom more with walking. His back and shoulder discomfort hurts more with movement of his upper torso and twisting his body. These areas do have some discomfort to palpation. He is describing intermittent nausea which does not seem to be related to the chest discomfort. He has some shortness of breath with walking which is not new. No palpitations, presyncope, syncope, PND, orthopnea or edema. He is taking all meds as directed. No bleeding issues reported. Certified Mandarin/Malay spanish interpreter/translator used. [facility] Medical History Hypercholesteremia CAD (coronary artery disease) Surgical History S/P CABG x 4 History of cardiac cath Family History Father Diabetes Mother No problems noted. Social History Alcohol intake: current Alcohol intake frequency: 0-2 drinks per day Alcohol type: wine Patient Tobacco Use Status: Former Tobacco user Quit Date: 2019 Years Smoked: 20 +/- Review of Systems Const All systems reviewed & are unremarkable except as noted in HPI and below Denies chills, Denies daytime sleepiness, Denies fatigue, Denies fever(s), Denies frequent falls, Denies night sweats, Denies snoring, Denies weakness, Denies weight gain and Denies weight loss Eyes Denies loss of vision ENT Denies dizziness and Denies hearing loss Card Details: Discomfort in upper back and shoulders worse with his body and raising up arms. Tightness in chest at times that improves with deep breathing. Reports chest pain, Reports chest pain at rest, Reports chest pain with activity, Denies syncope, Denies rapid heart rate, Denies edema, Denies claudication, Denies leg edema, Denies lightheadedness, Denies palpitations and Denies orthopnea Resp Denies cough, Denies excessive phlegm production, Denies snoring and Denies wheezing GI Denies abdominal pain, Denies hematochezia, Denies change in bowel habits, Denies change in stool character, Denies heartburn, Denies nausea and Denies vomiting Denies hematuria, Denies dysuria and Denies urinary frequency Musc Denies arthralgias, Denies muscle weakness, Denies numbness and Denies tingling Skin/Breast Denies nail changes and Denies rash Neuro Denies Abnormal speech present, Denies dizziness, Denies syncope, Denies frequent falls, Denies loss of vision, Denies memory loss, Denies numbness, Denies tingling and Denies weakness Psych Denies depression and Denies memory loss Endo Denies fatigue and Denies palpitations Aller/Immun Denies wheezing Physical Exam Vital Signs: Last Vital Signs Pulse 81 10/31/23 09:40 BP 110/68 10/31/23 09:40 BMI result Body Mass Index 33.5 Const General: cooperative, healthy appearing, comfortable and no acute distress Orientation/consciousness: patient oriented x3 Neck Neck: Yes normal visual inspection Resp Effort & Inspection: normal respiratory effort Auscultation: clear to auscultation bilaterally, no crackles, no rales, no rhonchi and no wheezes Cardio Jugular venous distension: no JVD Rate: regular rate Rhythm: regular rhythm Heart sounds: S1 normal heart sound present, S2 normal heart sound present, no murmurs and no rubs Skin General skin exam: no rashes or lesions noted Neuro General: patient oriented x3 Speech: No Abnormal speech present Extrem General: Yes normal to inspection, No no pedal edema and No calf tenderness Psych Appearance: grossly normal Mental Status: mental status grossly normal Speech and movement: Normal speech and movement present Office Procedures EKG Details: Today, read by me, normal sinus rhythm, incomplete right bundle branch block, T-wave abnormality inferiorly, lead 1 and V3 through V6, overall no significant change from last EKG 02/18/2023, can not exclude prior inferior infarct, LVH, rate 68, QTC 435 milliseconds [id number], Complete Assessment & Plan Assessment & Plan (1) CAD (coronary artery disease): Code(s): I25.10 - Atherosclerotic heart disease of [place] coronary artery without angina pectoris Plan: History of CAD with cardiac catheterization in 2019 showing moderate left circumflex and distal RCA disease, manage medically. Development of stable angina leading to repeat cardiac catheterization on 06/19/2021 showing significant CAD including left main 65-70% stenosis. He then underwent a 4 vessel coronary artery bypass grafting on 06/25/2021. Echocardiogram done on 08/14/2021 showed EF 50-55% with a wall motion abnormality in the RCA territory. A repeat echocardiogram done 10/04/2021 showed EF 72%, no regional wall motion abnormalities. On last visit he reported some shortness of breath with walking and atypical sounding chest discomfort. Today he reports chest discomfort described as tightness that can occur with walking and improved some with deep breath which could be related to ischemia. He also has discomfort in his upper back and shoulders which seems more musculoskeletal. His shortness of breath with walking is unchanged recently. EKG done today showing sinus rhythm, incomplete right bundle branch block, T-wave inversions inferior lateral leads, rate 68. EKG compared to last EKG and overall no significant change. With his report of symptoms will need to evaluate for ischemia. Will update exercise nuclear stress test and echocardiogram. Signs and symptoms of angina reviewed. Will continue current med management for stable CAD including aspirin indefinitely, atorvastatin, metoprolol. Blood pressure her 110/68. Will hold off on adding 2nd antianginal at present. [place] LDL goal less than 70. Will enter orders for updated lipid profile. Emergency care if needed for symptoms. Cardiology follow-up in 4 weeks, sooner if needed (2) S/P CABG x 4: Comment: 06/25/2021, 4 vessel Coronary artery bypass grafting, hodges to mid LAD, SVG to distal RCA, left radial artery to OM and SVG to ramus Code(s): Z95.1 - Presence of aortocoronary bypass graft (3) Abnormal electrocardiogram [ECG] [EKG]: Code(s): R94.31 - Abnormal electrocardiogram [ECG] [EKG] Plan: As above (4) Hyperlipidemia: Code(s): E78.5 - Hyperlipidemia, unspecified Plan: As above (5) Precordial chest pain: Code(s): R07.2 - Precordial pain Plan: As above Plan Time spent on chart review, documentation, interview assessment Orders: Orders NM cardiolite stress test Today E78.5 - Hyperlipidemia, unspecified, I25.10 - Atherosclerotic heart disease of [place] coronary artery without angina pectoris, R07.2 - Precordial pain, Z95.1 - Presence of aortocoronary bypass graft CA stress test Today I25.10 - Atherosclerotic heart disease of [place] coronary artery without angina pectoris, R07.2 - Precordial pain, R94.31 - Abnormal electrocardiogram [ECG] [EKG], Z95.1 - Presence of aortocoronary bypass graft CA echo transthoracic complete Today I25.10 - Atherosclerotic heart disease of [place] coronary artery without angina pectoris, R07.2 - Precordial pain, R94.31 - Abnormal electrocardiogram [ECG] [EKG], Z95.1 - Presence of aortocoronary bypass graft Coding Level of Care Code Est Pt Level 4 (25296) Diagnoses CAD (coronary artery disease) I25.10 S/P CABG x 4 Z95.1 Abnormal electrocardiogram [ECG] [EKG] R94.31 Hyperlipidemia E78.5 Precordial chest pain R07.2 CPT Codes EKG - CPT: [id number], Complete ([id number]) Time Spent (min) 30
[2023-10-31 09:40] VITALS: BP 110/68; PULSE 81; BMI 33.5
== END 2023-10-31 10:23 | disposition home or self-care (01) ==
PROVIDERS: PCP Internal Medicine; Visit Provider Nurse Practitioner Family
DX: I25.10 Atherosclerotic heart disease of native coronary artery without angina pectoris (principal); Z95.1 Presence of aortocoronary bypass graft; R94.31 Abnormal electrocardiogram [ECG] [EKG]; E78.5 Hyperlipidemia, unspecified; R07.2 Precordial pain
CPT/HCPCS: 93010; 99214

== ENCOUNTER → 2023-10-31 09:27 | Outpatient (BNVA) | payer OTHER, SELFPAY | PROVIDERS: PCP Internal Medicine; Visit Provider Nurse Practitioner Family | DX: I25.10 Atherosclerotic heart disease of native coronary artery without angina pectoris (principal); R94.31 Abnormal electrocardiogram [ECG] [EKG]; E78.5 Hyperlipidemia, unspecified; R07.2 Precordial pain; Z95.1 Presence of aortocoronary bypass graft | CPT/HCPCS: 93005; 99212 ==

== ENCOUNTER → 2023-12-10 07:32 | Outpatient (REF) | payer OTHER, SELFPAY ==
--- NOTE | ~2023-12-10 | NM_ITS ---
Exercise Myocardial perfusion study Indication: Precordial pain to evaluate for myocardial ischemia Technique: The patient was brought in for an exercise perfusion study on 12/10/2023. Patient performed exercise as per Jaquan protocol and was injected 25 mCi of sestamibi was given intravenously one target HR was achieved. Images were obtained using the SPECT gamma camera interlaced with the gating device. Images were obtained in supine position. Resting perfusion study was performed on 12/11/2023. Patient was administered 25 mCi of sestamibi intravenously at rest. Images were then obtained in supine position. Images obtained with and without CT attenuation. Total DLP 90 mGy-cm. Images were processed with the software and compared side to side in short axis, horizontal long axis and vertical long axis views. Findings: The stress perfusion study showed images show mildly reduced uptake in the basal inferior wall of the LV myocardium. Remainder of the LV myocardium is normally perfused. Attenuation corrected images show normal uptake of tracer in all segments LV myocardium. The gated study shows normal LV systolic function with calculated LVEF of 67%. LV cavity is normal in size. The gated study shows normal systolic wall thickening and contraction of all segments. There is no transient ischemic dilation. Resting study shows no change in perfusion pattern compared to stress perfusion study. Gating at rest reveals normal systolic wall motion with ejection fraction at 68%. The findings are consistent with normal myocardial perfusion. NM/NM cardiolite stress test Impression: 1. Normal myocardial perfusion 2. Gated LVEF is 67% 3. Transient ischemic dilatation not present Stress EKG is negative for ischemia
--- NOTE | 2023-12-10 07:36 | CA_ITS ---
Acquisition Time: 2023-12-10 09:16:21 Total Exercise Time: 00:05:00 Test Indications: Abnormal ECG Medications: ASA ATORVASTATIN ZETIA INSULIN METFORMIN METOPROLOL Protocol: MASOUD Max HR: 151 BPM 89% of Pred: 169 BPM Max BP: 160/090 mmHG Max Work Load: 4.6 METS Exercise stress test exercise 5 min of Masoud protocol achieving 88% MPHR, without chest discomfort, with moderate to severe SOB which quickly recovered. without arrhythmias seen through artifact, with normotensive response to exercise, without changes seen from baseline abnormalities. Nuclear images pending. Test reviewed with Dr. Prasad. Referred By: Myra Araujo Overread By: Cindy Weiss
--- NOTE | 2023-12-10 07:36 | CA_ITS ---
Transthoracic Echocardiogram Patient (Last, First, Middle): Vince Bruno, Gender: Male Date of : 1970 Age: 53 Procedure Date: 12/10/2023 Procedure Type: Transthoracic Echocardiogram Location: OP Height: 167.64 cm Weight: 81.65 kg BSA: 1.91 m2 Heart Rate: bpm BP: 106 / 68 mmHg Chemical Pumper: TO Referring MD: Myra Araujo DIRECTOR OF CURRICULUM AND INSTRUCTION-[place] Symptoms: R07.2 - Precordial pain Study Quality: Fair/Contrast ECG Rhythm: Sinus Conclusions: - The left ventricular systolic function is normal. The visually estimated ejection fraction is between 60-65%. - No obvious valvular pathology seen on this study. Findings Procedure Information Contrast agent, definity, is being given per protocol without apparent complications. Left Ventricle Normal left ventricular cavity size. The left ventricular systolic function is normal. The visually estimated ejection fraction is between 60-65%. There is no evidence of regional wall motion abnormalities. There is paradoxical septal motion consistent with post-operative status. Diastolic function is normal for age. There is mild septal asymmetric hypertrophy. Right Ventricle Normal right ventricular cavity size. There is mildly decreased right ventricular systolic function. Atria Both atria are normal in size. Aortic Valve There is a normal trileaflet aortic valve. There is no aortic valve stenosis. There is no aortic valve regurgitation. Mitral Valve The mitral valve appears normal. There is no mitral valve regurgitation. There is no mitral valve stenosis. Pulmonic Valve The pulmonic valve is likely normal. Tricuspid Valve There is trace tricuspid valve regurgitation. There is no evidence of pulmonary hypertension. Great Vessels The asc aorta is normal in size. Venous The inferior vena cava is normal in size and collapses greater than 50% with inspiration. Pericardium/Pleural There is no evidence of pericardial effusion. Prior Study Comparison No significant change compared to prior study dated: 10/04/2021. Recommendations, Care & Conclusions No obvious valvular pathology seen on this study. Measurements 2D Linear Measurements IVSd: 1.09 0.6-0.9/0.6-1.0 cm LVIDd: 4.49 3.9-5.3/4.2-5.9 cm LVIDd Index: 2.35 2.4-3.2/2.2-3.1 cm/m2 LVIDs: 3.45 2.0-3.6 cm LVPWd: 0.96 0.7-1.1 cm LA Diam: 3.90 2.7-3.8/3.0-4.0 cm LAIDs Index: 2.04 1.5-2.3 cm/m2 LV Mass: 197.18 67-162/88-224 g LV Mass Index: 103.23 43-95/49-115 g/m2 LVOT Diam: 2.10 3.0+(-)1.3 cm 2D Systolic Function EF 4C: 56.60 >55% EF 2C: 59.60 >55% EF BiP: 57.90 >55% Mitral Valve MV Pk E: 0.62 MV PK A: 0.52 MV Decel Time: 200.00 E/A: 1.20 E'Lateral: 9.79 E'Medial: 5.77 E/E' Med: 10.80 E/E' Lat: 6.30 PHT: 59.00 MVA PHT: 3.73 Decel Wolfe: 3.11 Aortic Valve AoV Pk Walter: 1.31 AoV Mn Walter: 0.87 AoV VTI: 0.28 AoV Pk Grad: 7.00 Aov Mn Grad: 4.00 NADEGE Cont.VTI: 2.19 LVOT LVOT Pk Walter: 0.85 LVOT Mn Walter: 0.58 LVOT VTI: 0.18 LVOT Pk Grad: 3.00 LVOT Mn Grad: 2.00 LVOT Diam: 2.10 LVOT Area: 3.46 Diastolic Function MV Pk E: 0.62 MV Pk A: 0.52 E/A: 1.20 E'Medial: 5.77 E/E' Med: 10.80 E' Laterial: 9.79 E/E' Lat: 6.30 Right Ventricle TAPSE (mm): 13.80 TVS' Walter: 8.65 Tricuspid Valve TR Pk Walter: 2.05 TR Pk Grad: 17.00 RA Press: 3.00 RVSP: 20.00 Great Vessels Aorta Sinus of Valsalva: 3.79 2.0-3.[address] Ridge: 3.00 1.7-3.4 cm Ao Asc: 3.50 2.1-3.4 cm Updated in Other Vendor System with Status of Final Reinaldo Prasad MD electronically signed on 12/12/2023 10:10:58 AM with status of Final
== END ==
LOC: HO.CARD 07:32
PROVIDERS: PCP Internal Medicine; Visit Provider Nurse Practitioner Family
DX: R07.2 Precordial pain (principal); R94.31 Abnormal electrocardiogram [ECG] [EKG]; I25.10 Atherosclerotic heart disease of native coronary artery without angina pectoris; E78.5 Hyperlipidemia, unspecified; Z95.1 Presence of aortocoronary bypass graft
CPT/HCPCS: 78452; 93017; 93306; A9500; Q9957

== ENCOUNTER → 2023-12-10 07:36 | Outpatient (BNV) | payer OTHER, SELFPAY | PROVIDERS: PCP Internal Medicine; Visit Provider Nurse Practitioner | DX: R07.2 Precordial pain (principal) | CPT/HCPCS: 78452; 93016; 93018; 93350; 93352 ==

== ENCOUNTER 2023-12-15 12:32 | Day surgery (SDC) | payer OTHER, SELFPAY ==
--- NOTE | 2023-12-12 09:15 | HO.ANESPROP2 ---
Documented by User: Fanta Oneal NP 12/12/23 12:34 HPI - Anesthesia Eval Consult details Narrative: 53yo M for Colonoscopy Follows [facility] [place] cardiology. CAD s/p CABG x 4 2020. Last office visit 10/2023 with vague reports of chest pain. Sent for Nuc stress and ECHO, negative 11/2023 [facility] Active Problems Active Problems: All Active Problems (Updated 10/31/23 @ 11:39 by Myra Araujo NP-C) Precordial chest pain (Acute) CAD (coronary artery disease) (Acute) S/P CABG x 4 (Acute) Abnormal electrocardiogram [ECG] [EKG] (Acute) History of cardiac cath (Acute) Hyperlipidemia (Acute) Stable angina (Acute) Past Medical History Medical History HTN (hypertension) Diabetes Hypercholesteremia CAD (coronary artery disease) Family History Family History Father Diabetes Mother No problems noted. Surgical History Surgical History S/P CABG x 4 History of cardiac cath Social History Social History Alcohol intake: current Alcohol intake frequency: 0-2 drinks per day Alcohol type: wine Patient Tobacco Use Status: Former Tobacco user Quit Date: 2019 Years Smoked: 20 +/- Advance Directives: No Advance Directives Information Provided: Yes Meds Allergies Allergy/AdvReac Type Severity Reaction Status Date / Time No Known Allergies Allergy Verified 12/15/23 12:37 [No Known Allergies*] Home Medications Medication Instructions Recorded Confirmed Last Taken Type metformin 500 mg tablet 500 mg PO BID 07/10/21 12/15/23 Unknown History insulin glargine 100 unit/mL (3 36 unit subcut QPM 07/12/21 12/15/23 Unknown History mL) subcutaneous pen (Lantus Solostar U-100 Insulin) clopidogrel 75 mg tablet 75 mg PO DAILY 12/12/23 12/15/23 12/08/23 History Exam Pertinent Lab Results Pertinent Lab Results: Laboratory Tests 10/21/23 16:27 WBC 8.8 Hgb 15.9 Hct 46.1 Plt Count 223 Sodium 140 Potassium 4.5 Chloride 106 Carbon Dioxide 30 H BUN 17 H Creatinine 0.99 Narrative Narrative: EKG 10/2023 Details: Today, read by me, normal sinus rhythm, incomplete right bundle branch block, T-wave abnormality inferiorly, lead 1 and V3 through V6, overall no significant change from last EKG 02/18/2023, can not exclude prior inferior infarct, LVH, rate 68, QTC 435 milliseconds NM cardiolite stress test 11/2023 Impression: 1. Normal myocardial perfusion 2. Gated LVEF is 67% 3. Transient ischemic dilatation not present Stress EKG is negative for ischemia ECHO 11/2023 Conclusions: - The left ventricular systolic function is normal. The visually estimated ejection fraction is between 60-65%. - No obvious valvular pathology seen on this study. Assessment and Plan Assessment Anesthesia Assessment: Chart Reviewed Documented by User: Mandi Armenta MD 12/15/23 13:07 [facility] Past Medical History Medical History HTN (hypertension) Diabetes Hypercholesteremia CAD (coronary artery disease) Family History Family History Father Diabetes Mother No problems noted. Family history of problems with anesthesia: No Surgical History Surgical History S/P CABG x 4 History of cardiac cath History of Problems with Anesthesia: No Social History Social History Alcohol intake: current Alcohol intake frequency: 0-2 drinks per day Alcohol type: wine Patient Tobacco Use Status: Former Tobacco user Quit Date: 2019 Years Smoked: 20 +/- Advance Directives: No Advance Directives Information Provided: Yes Meds Allergies Allergy/AdvReac Type Severity Reaction Status Date / Time No Known Allergies Allergy Verified 12/15/23 12:37 [No Known Allergies*] Home Medications Medication Instructions Recorded Confirmed Last Taken Type metformin 500 mg tablet 500 mg PO BID 07/10/21 12/15/23 Unknown History insulin glargine 100 unit/mL (3 36 unit subcut QPM 07/12/21 12/15/23 Unknown History mL) subcutaneous pen (Lantus Solostar U-100 Insulin) clopidogrel 75 mg tablet 75 mg PO DAILY 12/12/23 12/15/23 12/08/23 History Exam Airway Mallampati Class: II TM Dist: >3cm Neck ROM: Full Heart: rrr Lungs: ctab Assessment and Plan Assessment Anesthesia Assessment: Anesthesia Plan Discussed Final Anesthetic Review Family History of Problems with Anesthesia: No History of Problems with Anesthesia: No NPO: Yes ASA Class: III Final Preanesthetic Review: No Changes in Pt Med Stat, Meds/Allgs Chart Reviewed, Consent Obtained/Reviewed and Anes Risks/Benef Reviewed Patient Risk: Intermediate Procedure Risk: Low Anesthetic Plan Anesthetic Plan: MAC: Disposition: Standard PACU
[2023-12-15 12:56] VITALS: BMI 29.8
[2023-12-15 13:15] LABS: Glucose, Whole Blood 120 mg/dL (60-115)
[2023-12-15 13:40] VITALS: BP 118/91; PULSE 90; RESP 16; TEMP 36.6; O2SAT 97
[2023-12-15] MEDS: Lactated Ringers 1,000 ML 100 ML IVCONT (13:57)
--- NOTE | 2023-12-15 14:56 | PM.OP ---
Brief Operative Note Date of Service: 12/15/23 Pre-op diagnosis: Screening Post-op diagnosis: other (Polyps) Procedure: Colonoscopy to the cecum with hot snare polypectomy x 2 with placement of 1 Resolution clip on each polypectomy site Surgeon: Josias Daly MD Anesthesia: MAC Was an Crane Hooker used for this Procedure?: No Estimated blood loss (mL): 0 Pathology: other (A. Cecal polyp B. Polyp at 50cm) Condition: stable Disposition: PACU
[2023-12-15 14:59] VITALS: BP 109/69; PULSE 70; RESP 16; TEMP 36.6; O2SAT 99
[2023-12-15 15:14] VITALS: BP 113/80; PULSE 81; RESP 16; O2SAT 99
[2023-12-15 15:29] VITALS: BP 119/95; PULSE 79; RESP 14; O2SAT 99
[2023-12-15 15:44] VITALS: BP 123/93; PULSE 75; RESP 15; TEMP 36.6; O2SAT 99
--- NOTE | 2023-12-16 03:05 | OP_ITS ---
DATE OF SERVICE: 12/15/2023 SURGEON: Josias Daly MD INDICATIONS: The patient presents for evaluation of colorectal cancer screening. Full consent obtained from him for this, including risks of bleeding and perforation. PREOPERATIVE DIAGNOSIS: Colorectal cancer screening. POSTOPERATIVE DIAGNOSIS: Colorectal cancer screening, colon polyps, mild diverticulosis, small internal hemorrhoids. PROCEDURE PERFORMED: Colonoscopy to the cecum with hot snare polypectomy x 2 and placement of one resolution clip on each polypectomy site. ESTIMATED BLOOD LOSS: COMPLICATIONS: ANESTHESIA: Monitored anesthesia care. ASSISTANTS: SPECIMENS: DESCRIPTION OF PROCEDURE: The patient was placed in the left lateral decubitus position. The digital rectal exam revealed no abnormalities. The TwentyFeet video pediatric colonoscope was entered into the rectum and advanced easily to the cecum. Once in the cecum, I did identify cecal pouch with appendiceal orifice and a normal-appearing ileocecal valve. The entire cecum was well visualized. In the cecum was an approximately 5 or 6 mm flat, but raised grossly adenomatous polyp which was removed by hot snare polypectomy and recovered by suction. The polypectomy site appeared clean, without any sign of residual polyp nor bleeding. A single resolution clip was applied to the polypectomy site with good deployment and good hemostasis. The scope was then slowly withdrawn, assessing all mucosal surfaces carefully. Preparation was excellent. At 50 cm was an approximately 8 mm flat, but raised polyp, which was removed by hot snare polypectomy and recovered by suction. The polypectomy site appeared clean, without any sign of residual polyp nor bleeding. A resolution clip was deployed, but not successfully, and fell into the lumen of the bowel. A second clip was then deployed onto the polypectomy site with good deployment and good hemostasis. I did not visualize any other polyps, colitis, nor angiodysplasia. There were occasional diverticula in the sigmoid colon. In the rectum the scope was retroflexed visualizing small internal hemorrhoids, but no other pathology. The rectal mucosa appeared normal. The scope was straightened and withdrawn from the patient. He tolerated the procedure well and was returned to the recovery area in stable condition. IMPRESSION: 1. Colon polyps. 2. Mild diverticulosis. 3. Small internal hemorrhoids. PLAN: The results of the pathology will be checked. If these are adenomas I would recommend a followup coloscopy in 5 years. He was advised to resume his Plavix tomorrow and to resume his aspirin in 48 hours on December 16. He was advised to avoid NSAIDs long-term. He will see me otherwise on a p.r.n. basis. This has all been discussed with his sister. MD HARRIS Jackson/CHIDI / [id number] MTDD
== END 2023-12-15 15:59 | disposition home or self-care (01) ==
PROVIDERS: PCP Internal Medicine; Visit Provider Internal Medicine
PROC: 0DJD8ZZ Inspection of Lower Intestinal Tract, Via Natural or Artificial Opening Endoscopic (ICD-10-PCS; CPT 45378; principal; 2023-12-15 14:10)
DX: Z12.11 Encounter for screening for malignant neoplasm of colon (principal); D12.0 Benign neoplasm of cecum; D12.5 Benign neoplasm of sigmoid colon; K57.30 Diverticulosis of large intestine without perforation or abscess without bleeding; K64.8 Other hemorrhoids; I25.10 Atherosclerotic heart disease of native coronary artery without angina pectoris; Z95.1 Presence of aortocoronary bypass graft; I10 Essential (primary) hypertension; E78.5 Hyperlipidemia, unspecified; E11.9 Type 2 diabetes mellitus without complications; Z79.01 Long term (current) use of anticoagulants; Z79.82 Long term (current) use of aspirin; Z79.899 Other long term (current) drug therapy; Z79.4 Long term (current) use of insulin; Z79.84 Long term (current) use of oral hypoglycemic drugs; Z87.891 Personal history of nicotine dependence
CPT/HCPCS: 45385; 82947; 88305; J2704

== ENCOUNTER → 2023-12-18 08:23 | Outpatient (BNVA) | payer OTHER, SELFPAY | PROVIDERS: PCP Internal Medicine; Visit Provider Nurse Practitioner Family | DX: I25.10 Atherosclerotic heart disease of native coronary artery without angina pectoris (principal); R94.31 Abnormal electrocardiogram [ECG] [EKG]; R07.2 Precordial pain; E78.5 Hyperlipidemia, unspecified; Z95.1 Presence of aortocoronary bypass graft | CPT/HCPCS: 99212 ==

== ENCOUNTER 2023-12-18 08:24 | Outpatient (AMB) | payer OTHER, SELFPAY ==
--- NOTE | 2023-12-18 08:39 | MHC.OFFVIS ---
Intake Vital Signs 12/18/23 08:41 Height 5 ft 5.75 in Weight 186 lb 1.122 oz BMI 30.3 BP 100/84 Blood Pressure Location Lt brachial Position Sitting Pulse 77 Pulse Source Pulse Oximeter Intake Visit Reasons: 6 week fu after echo & nuclear Washroom Operator Required: Yes Washroom Operator Language: Mandarin Arabic Washroom Operator Name: drew salter [id number] Allergies No Known Allergies [No Known Allergies*] Allergy (Verified 12/18/23 08:47) Medication List - Last Reconciled 12/18/23 by Myra Araujo NP-C aspirin 81 mg PO DAILY atorvastatin 40 mg PO DAILY insulin glargine (Lantus Solostar U-100 Insulin) 36 units subcut QPM metformin 500 mg PO BID metoprolol succinate ER 50 mg PO DAILY HPI 6 week fu after echo & nuclear HPI Details Vince is a 53-year-old male with past medical history of hyperlipidemia, CAD, 4 vessel coronary artery bypass grafting 06/2021 who presents for follow-uP ftrer recent nuclear stress test and echocardiogram. Today he reports that his prior upper back and shoulder discomfort has resolved. He continues to report some tightness in his chest when he walks very fast. He has no symptoms with normal walking or usual ADLs. He has no new or worsening of any symptoms. Denies palpitation, lightheadedness or symptoms. He continues to have some shortness of breath with exertional activity. At times it still feels like he needs to take a deep breath in. He is taking all meds as directed. He still has some Plavix tablets and needs refills on other meds. No bleeding issues reported. Going to [place] , December to April. Requesting a refill on his Insulin. Informed him I will send message to PCP. 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 [facility] Medical History HTN (hypertension) Diabetes Hypercholesteremia CAD (coronary artery disease) Surgical History S/P CABG x 4 History of cardiac cath Family History Father Diabetes Mother No problems noted. Social History Alcohol intake: current Alcohol intake frequency: 0-2 drinks per day Alcohol type: wine Patient Tobacco Use Status: Former Tobacco user Quit Date: 2019 Years Smoked: 20 +/- Review of Systems Const All systems reviewed & are unremarkable except as noted in HPI and below ENT Reports dizziness Card Details: chest tightness when walks real fast Denies chest pain, Denies chest pain at rest, Denies chest pain with activity, Denies rapid heart rate, Denies pedal edema, Denies edema, Denies leg edema, Denies lightheadedness, Denies palpitations, Denies dyspnea, Denies dyspnea on exertion and Denies orthopnea Resp Denies cough, Denies dyspnea and Denies dyspnea on exertion GI Denies hematochezia and Denies change in stool character Musc Details: prior back/ shoulder discomfort resolved Denies abnormal gait, Denies limited range of motion, Denies muscle cramps, Denies muscle weakness, Denies numbness, Denies radiating pain into limb, Denies stiffness and Denies tingling Neuro Denies Abnormal speech present, Denies abnormal gait, Reports dizziness, Denies numbness and Denies tingling Endo Denies palpitations Physical Exam Vital Signs: Last Vital Signs Pulse 77 12/18/23 08:41 BP 100/84 12/18/23 08:41 BMI result Body Mass Index 30.3 Const General: cooperative, healthy appearing, comfortable and no acute distress Orientation/consciousness: patient oriented x3 Neck Neck: Yes normal visual inspection Resp Effort & Inspection: normal respiratory effort Auscultation: clear to auscultation bilaterally, no crackles, no rales, no rhonchi and no wheezes Cardio Jugular venous distension: no JVD Rate: regular rate Rhythm: regular rhythm Heart sounds: S1 normal heart sound present, S2 normal heart sound present, no murmurs and no rubs Skin General skin exam: no rashes or lesions noted Neuro General: patient oriented x3 Speech: No Abnormal speech present Extrem General: Yes normal to inspection, No no pedal edema and No calf tenderness Psych Appearance: grossly normal Mental Status: mental status grossly normal Speech and movement: Normal speech and movement present Assessment & Plan Assessment & Plan (1) CAD (coronary artery disease): Code(s): I25.10 - Atherosclerotic heart disease of [place] coronary artery without angina pectoris Plan: History of CAD with cardiac catheterization in 2019 showing moderate left circumflex and distal RCA disease, manage medically. Development of stable angina leading to repeat cardiac catheterization on 06/19/2021 showing significant CAD including left main 65-70% stenosis. He then underwent a 4 vessel coronary artery bypass grafting on 06/25/2021. On last visit he reported some shortness of breath with walking and atypical sounding chest and upper back discomfort. EKG done last visit showed sinus rhythm, incomplete right bundle branch block, T-wave inversions inferior lateral leads, rate 68. EKG compared to prior EKG and overall no significant change. He underwent an exercise nuclear stress test on 12/11/23 with exercise 5 min, with shortness of breath, no EKG changes and normal myocardial perfusion imaging. Echocardiogram done 12/10/23 showed EF 60-65%, no valve or regional wall motion abnormalities. No clear evidence that his chest tightness or sob are cardiac related. He may still be having chest wall symptoms. Signs and symptoms of angina reviewed him. Will continue current med management for stable CAD including aspirin indefinitely, atorvastatin, metoprolol. he has some plavix tablets left which he can complete. Blood pressure her 100/84. Will hold off on adding 2nd antianginal at present. [place] LDL goal less than 70. Will enter orders for updated lipid profile - in system, pt reminded. Emergency care if needed for symptoms. Cardiology follow-up in 6 months, sooner if needed (2) S/P CABG x 4: Comment: 06/25/2021, 4 vessel Coronary artery bypass grafting, hodges to mid LAD, SVG to distal RCA, left radial artery to OM and SVG to ramus Code(s): Z95.1 - Presence of aortocoronary bypass graft Plan: as above (3) Abnormal electrocardiogram [ECG] [EKG]: Code(s): R94.31 - Abnormal electrocardiogram [ECG] [EKG] Plan: As above (4) Hyperlipidemia: Code(s): E78.5 - Hyperlipidemia, unspecified Plan: As above (5) Precordial chest pain: Code(s): R07.2 - Precordial pain Plan: As above Plan Time spent on chart review, documentation, interview assessment Medications: Refilled aspirin 81 mg PO DAILY 90 tabs 3RF I20.8 - Other forms of angina pectoris atorvastatin 40 mg PO DAILY 90 tabs 3RF Coding Level of Care Code Est Pt Level 4 (23848) Diagnoses CAD (coronary artery disease) I25.10 S/P CABG x 4 Z95.1 Abnormal electrocardiogram [ECG] [EKG] R94.31 Hyperlipidemia E78.5 Precordial chest pain R07.2 Time Spent (min) 30
[2023-12-18 08:41] VITALS: BP 100/84; PULSE 77; BMI 30.3
== END 2023-12-18 09:31 | disposition home or self-care (01) ==
PROVIDERS: PCP Internal Medicine; Visit Provider Nurse Practitioner Family
DX: I25.10 Atherosclerotic heart disease of native coronary artery without angina pectoris (principal); Z95.1 Presence of aortocoronary bypass graft; R94.31 Abnormal electrocardiogram [ECG] [EKG]; E78.5 Hyperlipidemia, unspecified; R07.2 Precordial pain
CPT/HCPCS: 99214

== ENCOUNTER 2024-06-18 08:01 | Outpatient (AMB) | payer OTHER, SELFPAY ==
[2024-06-18 08:16] VITALS: BP 124/62; BMI 26.9
--- NOTE | 2024-06-18 08:16 | A.OFFVIS_ITS ---
Vital Signs 06/18/24 08:16 Height 5 ft 7.5 in Weight 174 lb 2.643 oz BMI 26.9 BP 124/62 Blood Pressure Location Lt brachial Position Sitting Pulse Source Pulse Oximeter Intake Visit Reasons: 6 mnth f/up Intake Note: 6 /up Big Data Software Engineer Required: Yes Big Data Software Engineer Language: Hebrew - Traditional Big Data Software Engineer Name: cyracom/mandarin scottish Accompanied by: Self / Same As Patient Allergies No Known Allergies [No Known Allergies*] Allergy (Verified 12/18/23 08:47) Medication List - Last Reconciled 06/18/24 by Myra Araujo NP-C aspirin 81 mg PO DAILY atorvastatin 40 mg PO DAILY insulin glargine (Lantus Solostar U-100 Insulin) 36 units subcut QPM metformin 500 mg PO BID metoprolol succinate ER 50 mg PO DAILY HPI HPI 6 mn/up: Details: Vince is a 53-year-old male with past medical history of hyperlipidemia, CAD, 4 vessel coronary artery bypass grafting 06/2021 who presents for follow-up. Today he reports that his prior chest tightness when he walks very fast has resolved. He will feel a pin like sensation to the left chest randomly. No shortness of breath, PND, orthopnea or edema. His prior sob has resolved. Denies palpitation, lightheadedness or symptoms. He is taking all meds as directed. No bleeding issues reported. Walks 40 min daily for exercise. 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 [facility] Medical History HTN (hypertension) Diabetes Hypercholesteremia CAD (coronary artery disease) Surgical History S/P CABG x 4 History of cardiac cath Family History Father Diabetes Mother No problems noted. Social History Alcohol intake: current Alcohol intake frequency: 0-2 drinks per day Alcohol type: wine Patient Tobacco Use Status: Former Tobacco user Years Smoked: 20 +/- Review of Systems Const All systems reviewed & are unremarkable except as noted in HPI and below Denies chills, Denies fatigue, Denies fever(s), Denies frequent falls, Denies weakness, Denies weight gain and Denies weight loss ENT Denies dizziness Card Details: quick pin like pains at times in left chest region Denies chest pain, Reports chest pain at rest, Denies leg edema, Denies lightheadedness, Denies palpitations, Denies dyspnea and Denies dyspnea on exertion Resp Denies cough, Denies dyspnea and Denies dyspnea on exertion GI Denies hematochezia Musc Denies abnormal gait, Denies muscle weakness, Denies numbness, Denies radiating pain into limb and Denies tingling Neuro Denies abnormal gait, Denies dizziness, Denies frequent falls, Denies numbness, Denies tingling and Denies weakness Endo Denies fatigue and Denies palpitations Physical Exam Vital Signs: Last Vital Signs BP 124/62 06/18/24 08:16 BMI result Body Mass Index 26.9 Const General: cooperative, healthy appearing, comfortable and no acute distress Orientation/consciousness: patient oriented x3 Neck Neck: Yes normal visual inspection Resp Effort & Inspection: normal respiratory effort Auscultation: clear to auscultation bilaterally, no crackles, no rales, no rhonchi and no wheezes Cardio Jugular venous distension: no JVD Rate: regular rate Rhythm: regular rhythm Heart sounds: S1 normal heart sound present, S2 normal heart sound present, no murmurs and no rubs Neuro General: patient oriented x3 Extrem General: Yes normal to inspection and No no pedal edema Psych Appearance: grossly normal Mental Status: mental status grossly normal Speech and movement: Normal speech and movement present Assessment & Plan Assessment & Plan (1) CAD (coronary artery disease): Code(s): I25.10 - Atherosclerotic heart disease of [place] coronary artery without angina pectoris Category: Medical Plan: History of CAD with cardiac catheterization in 2019 showing moderate left circumflex and distal RCA disease, manage medically. Development of stable angina leading to repeat cardiac catheterization on 06/19/2021 showing significant CAD including left main 65-70% stenosis. He then underwent a 4 vessel coronary artery bypass grafting on 06/25/2021. Since that time he has reported some atypical chest discomfort and reported sob with activity. EKG done on prior visit showed sinus rhythm, incomplete right bundle branch block, T-wave inversions inferior lateral leads, rate 68. EKG compared to prior EKG and overall no significant change. He underwent an exercise nuclear stress test on 12/11/23 with exercise 5 min, with shortness of breath, no EKG changes and normal myocardial perfusion imaging. Echocardiogram done 12/10/23 showed EF 60- 65%, no valve or regional wall motion abnormalities. There was no clear evidence that his chest discomfort or sob were cardiac related. He was thought to have chest wall symptoms. Today he reports only pin like sensations to the left anterior chest, randomly.He says his breathing has improved. He walks routinely for exercise. Signs and symptoms of angina reviewed him. Will continue current med management for stable CAD including aspirin indefinitely, atorvastatin, metoprolol. [place] LDL goal less than 70. Will enter orders for updated labs - slips given to him so he can obtain today. Emergency care if needed for symptoms. Cardiology follow-up in 9 months, sooner if needed (2) S/P CABG x 4: Comment: 06/25/2021, 4 vessel Coronary artery bypass grafting, hodges to mid LAD, SVG to distal RCA, left radial artery to OM and SVG to ramus Code(s): Z95.1 - Presence of aortocoronary bypass graft Category: Surgical Plan: as above (3) Abnormal electrocardiogram [ECG] [EKG]: Code(s): R94.31 - Abnormal electrocardiogram [ECG] [EKG] Category: Medical Plan: As above (4) Hyperlipidemia: Code(s): E78.5 - Hyperlipidemia, unspecified Category: Medical Plan: As above (5) Precordial chest pain: Code(s): R07.2 - Precordial pain Category: Medical Plan: As above - atypical Plan Time spent on chart review, documentation, interview assessment Orders: Orders Complete Blood Count Auto Diff Today I25.10 - Atherosclerotic heart disease of [place] coronary artery without angina pectoris Comprehensive Met. Panel Today I25.10 - Atherosclerotic heart disease of [place] coronary artery without angina pectoris Lipid Panel Today I25.10 - Atherosclerotic heart disease of [place] coronary artery without angina pectoris Coding Level of Care Code Est Pt Level 4 (11811) Diagnoses CAD (coronary artery disease) I25.10 S/P CABG x 4 Z95.1 Abnormal electrocardiogram [ECG] [EKG] R94.31 Hyperlipidemia E78.5 Precordial chest pain R07.2 Time Spent (min) 30
== END 2024-06-18 08:48 | disposition home or self-care (01) ==
PROVIDERS: PCP Internal Medicine; Visit Provider Nurse Practitioner Family
DX: I25.10 Atherosclerotic heart disease of native coronary artery without angina pectoris (principal); Z95.1 Presence of aortocoronary bypass graft; R94.31 Abnormal electrocardiogram [ECG] [EKG]; E78.5 Hyperlipidemia, unspecified; R07.2 Precordial pain
CPT/HCPCS: 99214

== ENCOUNTER 2024-06-18 08:01 | Outpatient (REF) | payer OTHER, SELFPAY ==
[2024-06-18 09:06] LABS: MANUAL DIFF FLAG NO
[2024-06-18 09:35] LABS: Basophils Absolute Auto 0.1 X10*3/uL (0.0-0.2); Basophils Percent Auto 0.9 % (0-2); Eosinophils Absolute Auto 0.9 X10*3/uL (0.0-0.4); Eosinophils Percent Auto 12.4 % (0-4); Hematocrit 45.7 % (42.0-52.0); Hemoglobin 16.2 g/dl (14.0-18.0); Imm Gran Abs Auto 0.02 X10*3/uL (0.00-0.03); Imm Gran Pct Auto 0.3 % (0.0-0.4); Lymphocytes Absolute Auto 2.3 X10*3/uL (1.2-4.9); Lymphocytes Percent Auto 33.4 % (20-40); Mean Corpuscular HGB Conc 35.4 g/dl (31.0-36.0); Mean Corpuscular Hemoglobin 32.8 pg (27.0-33.0); Mean Corpuscular Volume 92.5 fL (80.0-98.0); Mean Platelet Volume 9.9 fL (9.4-12.4); Monocytes Absolute Auto 0.6 X10*3/uL (0.1-1.2); Monocytes Percent Auto 8.6 % (2-11); Neutrophils Percent Auto 44.4 % (45-73); Platelet Count 210 X10*3/uL (160-400); Red Blood Count 4.94 X10*6/uL (4.60-5.80); Red Cell Distribution Width 11.9 % (11.0-16.0); White Blood Count 6.8 X10*3/uL (4.8-10.8)
[2024-06-18 10:06] LABS: Alanine Aminotransferase 31 U/L (0-40); Alkaline Phosphatase 91 U/L (39-117); Anion Gap 8 (12-20); Aspartate Amino Transferase 16 U/L (5-37); Bilirubin Total 0.7 mg/dL (0.0-1.0); Blood Urea Nitrogen 13 mg/dL (9-16); Calcium 9.2 mg/dL (8.4-10.2); Carbon Dioxide 29 mmol/L (22-29); Chloride 108 mmol/L (96-108); Cholesterol 116 mg/dL (<200); Estimated Glomerular Filt Rate > 60; Glucose Random 123 mg/dL (60-115); HDL Cholesterol 37 mg/dL (>40); LDL Cholesterol Calculated 70 mg/dL (<100); Potassium 4.2 mmol/L (3.3-5.1); Sodium 141 mmol/L (135-145); Total Protein 6.9 g/dL (6.5-8.0); Triglycerides 49 mg/dL (<150)
== END 2024-06-18 08:02 | disposition home or self-care (01) ==
LOC: HO.LAB 08:01
PROVIDERS: PCP Internal Medicine; Visit Provider Nurse Practitioner Family
DX: I25.10 Atherosclerotic heart disease of native coronary artery without angina pectoris (principal); E78.5 Hyperlipidemia, unspecified; Z95.1 Presence of aortocoronary bypass graft; R94.31 Abnormal electrocardiogram [ECG] [EKG]; R07.2 Precordial pain
CPT/HCPCS: 36415; 80053; 80061; 85025; 99212

== ENCOUNTER 2024-10-22 10:31 | Outpatient (REF) | payer OTHER, SELFPAY ==
--- NOTE | ~2024-10-22 | XR_ITS ---
EXAMINATION: XR CHEST CLINICAL INFORMATION: HX OF CABG, COMPARISON: July 15, 2019 TECHNIQUE: 2 views of the chest were obtained. FINDINGS: No consolidation, pleural effusion or pneumothorax. Cardiomediastinal silhouette demonstrates calcified plaque Arctic arch and vascular clips in the mediastinum. Sternal wires. Multilevel thoracolumbar spondylosis with S-shaped curvature. XR/XR chest 2V IMPRESSION: No acute airspace disease. Stable chest. Electronically signed by: Bryce Fox MD 10/22/2024 11:17 AM [facility]
[2024-10-22 10:45] LABS: MANUAL DIFF FLAG NO
[2024-10-22 11:20] LABS: Basophils Absolute Auto 0.1 X10*3/uL (0.0-0.2); Hematocrit 46.6 % (42.0-52.0); Hemoglobin 16.2 g/dl (14.0-18.0); Imm Gran Abs Auto 0.02 X10*3/uL (0.00-0.03); Imm Gran Pct Auto 0.2 % (0.0-0.4); Lymphocytes Absolute Auto 2.5 X10*3/uL (1.2-4.9); Lymphocytes Percent Auto 31.6 % (20-40); Mean Corpuscular HGB Conc 34.8 g/dl (31.0-36.0); Mean Corpuscular Hemoglobin 31.6 pg (27.0-33.0); Mean Platelet Volume 9.9 fL (9.4-12.4); Monocytes Absolute Auto 0.6 X10*3/uL (0.1-1.2); Monocytes Percent Auto 7.5 % (2-11); Neutrophils Absolute Auto 3.8 x10*3/uL (2.0-8.3); Neutrophils Percent Auto 47.7 % (45-73); Platelet Count 190 X10*3/uL (160-400); Red Blood Count 5.12 X10*6/uL (4.60-5.80); White Blood Count 8.1 X10*3/uL (4.8-10.8)
[2024-10-22 11:21] LABS: Appearance Urine Clear; Color Urine Yellow; Glucose Urine UA Negative (Negative); Leukocyte Esterase Urine Negative (Negative); Nitrite Urine Negative (Negative); Specific Gravity - Urine 1.015 (1.005-1.025); Urine Blood Negative (Negative); Urine Ketones Negative (Negative); Urine Protein Negative (Neg-Trace)
[2024-10-22 11:39] LABS: Estimated Average Glucose 137 mg/dL; Hemoglobin A1C 196.3289 umol/L; Hemoglobin A1c % 6.4 % (<6.0); Total Hemoglobin (HGBA1C) 4277.4591 umol/L
[2024-10-22 12:14] LABS: Alanine Aminotransferase 40 U/L (0-40); Albumin Level 4.1 g/dL (3.5-5.0); Alkaline Phosphatase 83 U/L (39-117); Anion Gap 10 (12-20); Aspartate Amino Transferase 21 U/L (5-37); Bilirubin Total 0.7 mg/dL (0.0-1.0); Blood Urea Nitrogen 13 mg/dL (9-16); C Reactive Protein < 0.10 mg/dL (< or = 0.50); Calcium 9.4 mg/dL (8.4-10.2); Carbon Dioxide 26 mmol/L (22-29); Chloride 110 mmol/L (96-108); Cholesterol 117 mg/dL (<200); Estimated Glomerular Filt Rate > 60; Glucose Fasting 121 mg/dL (60-99); HDL Cholesterol 36 mg/dL (>40); LDL Cholesterol Calculated 70 mg/dL (<100); Sodium 142 mmol/L (135-145); Total Protein 7.2 g/dL (6.5-8.0); Triglycerides 57 mg/dL (<150)
[2024-10-22 12:28] LABS: Creatinine Urine 89.16 mg/dL; Microalbumin Urine < 5.0 mg/L
== END 2024-10-22 10:32 | disposition home or self-care (01) ==
LOC: HO.LAB 10:31
PROVIDERS: PCP Internal Medicine; Visit Provider Internal Medicine
DX: E78.00 Pure hypercholesterolemia, unspecified (principal); E11.9 Type 2 diabetes mellitus without complications; I25.10 Atherosclerotic heart disease of native coronary artery without angina pectoris
CPT/HCPCS: 36415; 71046; 80053; 80061; 81003; 82043; 82570; 83036; 85025; 86140

== ENCOUNTER → 2024-10-22 11:00 | Outpatient (BNV) | payer OTHER, SELFPAY | PROVIDERS: PCP Internal Medicine; Visit Provider Radiology Diagnostic Radiology | DX: Z95.1 Presence of aortocoronary bypass graft (principal) | CPT/HCPCS: 71046 ==

== ENCOUNTER 2025-02-02 10:37 | Outpatient (AMB) | payer OTHER, SELFPAY ==
--- NOTE | 2025-02-02 11:09 | A.OFFVIS_ITS ---
Vital Signs 02/02/25 11:13 Height 5 ft 7.5 in Weight 182 lb 15.739 oz BMI 28.2 BP 100/64 Blood Pressure Location Lt brachial Position Sitting Pulse 75 Pulse Source Monitor Intake Visit Reasons: 9m follow up/chest discomfort Intake Note: 9 mth f/up/chest discomfort, chest pain, left arm pain Fabrication And Layout Craftsman Required: Yes Fabrication And Layout Craftsman Language: Mandarin [place] Fabrication And Layout Craftsman Name: jasbir/madhav armenian/josé Accompanied by: Self / Same As Patient Allergies No Known Allergies [No Known Allergies*] Allergy (Verified 12/18/23 08:47) Medication List - Last Reconciled 02/02/25 by Stevie Thompson MD aspirin 81 mg PO DAILY atorvastatin 40 mg PO DAILY FreeStyle Lancets (lancets) three times daily NS insulin glargine (Lantus Solostar U-100 Insulin) 36 units (0.36 mL) subcut QPM 90 days metformin 500 mg PO BID metoprolol succinate ER 50 mg PO DAILY miscellaneous medical supply 1 ea miscellaneous TID miscellaneous medical supply Freestyle Lancets- use to check glucose three times daily. HPI Comments Details: [age] year gentleman who is here for follow-up. He has known history of coronary disease with ostial left main stenosis and RCA stenosis for which she underwent 4 vessel bypass surgery with CALVILLO to LAD, vein graft to ramus, left radial to OM and vein to PDA. He is here for follow-up and is complaining of some shortness of breath with activities. Also in September he had left arm chest and back discomfort along with upper abdominal discomfort. He said that these symptoms lasted him for couple of months. These were not exertional and with the exertional mostly he is getting some atypical left-sided sharp chest pains and dyspnea. He is saying he walks 30 minutes every day without any chest pain. [facility] Medical History (Updated 02/02/25 @ 11:42 by Stevie Thompson MD) HTN (hypertension) Diabetes Hypercholesteremia CAD (coronary artery disease) Surgical History S/P CABG x 4 History of cardiac cath Family History Father Diabetes Mother No problems noted. Social History Alcohol intake: current Alcohol intake frequency: 0-2 drinks per day Alcohol type: wine Patient Tobacco Use Status: Former Tobacco user Years Smoked: 20 +/- Review of Systems Const Denies chills, Denies fatigue, Denies fever(s), Denies frequent falls, Denies weakness, Denies weight gain and Denies weight loss ENT Denies dizziness Card Reports chest pain, Reports chest pain at rest, Denies leg edema, Denies lightheadedness, Denies palpitations, Denies dyspnea and Denies dyspnea on exertion Resp Denies cough, Denies dyspnea and Denies dyspnea on exertion GI Denies hematochezia Musc Denies abnormal gait, Denies muscle weakness, Denies numbness, Denies radiating pain into limb and Denies tingling Neuro Denies abnormal gait, Denies dizziness, Denies frequent falls, Denies numbness, Denies tingling and Denies weakness Endo Denies fatigue and Denies palpitations Physical Exam Vital Signs: Last Vital Signs Pulse 75 02/02/25 11:13 BP 100/64 02/02/25 11:13 BMI result Body Mass Index 28.2 GENERAL APPEARANCE: in no acute distress, pleasant. NECK: no carotid bruit, no jugular venous distention. SKIN: no suspicious lesions, warm and dry. HEART: no murmurs, regular rate and rhythm. LUNGS: clear to auscultation bilaterally. ABDOMEN: soft, nontender. EXTREMITIES: no edema. PERIPHERAL PULSES: equal. NEUROLOGIC: No gross deficits, AAO X 3 Office Procedures EKG Details: Sinus rhythm 75 beats per minute, normal axis, inferior infarct, left ventricular hypertrophy with repolarization changes, QTC 455 milliseconds. [id number], Complete Assessment & Plan Assessment & Plan (1) S/P CABG x 4: Comment: 06/25/2021, 4 vessel Coronary artery bypass grafting, calvillo to mid LAD, SVG to distal RCA, left radial artery to OM and SVG to ramus Code(s): Z95.1 - Presence of aortocoronary bypass graft Category: Surgical (2) Chest pain: Code(s): R07.9 - Chest pain, unspecified Category: Medical Plan Pleasant 54 year gentleman who is here for follow-up. He has background history of coronary artery bypass surgery. He is complaining of some shortness of breath and left-sided chest pains. He also had some prolonged episodes of left- sided chest discomfort arm discomfort and back discomfort over the last few months. He is status post CABG x4. We will arrange a exercise stress Mibi for him. Adding Zetia 10 mg because his LDL target is less than 55. Follow up with us in few months. Thank you for allowing me to participate in the care of your patient. Please feel free to contact me if you have any questions. Orders: Orders CA stress test Today R07.9 - Chest pain, unspecified NM cardiolite stress test Today R07.9 - Chest pain, unspecified Medications: New ezetimibe 10 mg PO DAILY 90 tabs 3RF E78.5 - Hyperlipidemia, unspecified Coding Level of Care Code Est Pt Level 4 (88884) Diagnoses S/P CABG x 4 Z95.1 Chest pain R07.9 CPT Codes EKG - CPT: 83733-[id number], Complete ([id number])
[2025-02-02 11:13] VITALS: BP 100/64; PULSE 75; BMI 28.2
--- OUTSIDE RECORDS SUMMARY | 2025-02-02 11:39 | XMS_ITS ---
Author Organization [facility] Address [address] [place] [phone] Care Team Providers Care Printing Gray Cloth Tender Name Role Phone Familia River MD Primary Care Provider Rehana Josias Talbert Unavailable [phone] REASON FOR VISIT ?Clearance note for his 12/14 procedure? Encounters Encounter Location Date Provider Diagnosis [facility] [address] [place] [phone] 12/14/2023 Josias Daly Plan Of Treatment No Information Progress Notes * SHANNAN SOLOB:1970 (53 y o M)Acc No.[id number]:12/14/2023 Patient:?EBENEZER ANASTACIO :1970???Age:53 Y???Sex:Male Address:[address] [place] [address], [id number] * true * Date:? Generated for Kena serra/Henrry/eTransmitting on:?02/02/2025 11:39 AM EDT
--- OUTSIDE RECORDS SUMMARY | 2025-02-02 11:40 | XMS_ITS ---
Author Organization [facility] Address [address] [place] [phone] Care Team Providers Care Coremaker Name Role Phone Familia River MD Primary Care Provider Unavaila Josias Talbert Unavailable [phone] REASON FOR VISIT screening Problems Problem Type SNOMED Code ICD Code Onset Dates Problem Status W/U Status Risk Notes Problem Diverticular disease of colon ([id number]) Diverticulosis of large intestine without perforation or abscess without bleeding (K57.30) Active confirmed Encounters Encounter Location Date Provider Diagnosis [facility] [address] [place] [phone] 12/15/2023 Josias Daly Encounter for scre ening [...] * SHANNAN SOLOB:1970 (54 y o M)Acc No.[id number]:12/15/2023 COLON WITH MAC Patient:?ANASTACIO SOL Provider:?Josias Daly MD :1970???Age:53 Y???Sex:Male Manny e:12/15/2023 Address:[address] [place] [phone] Pcp:Familia River MD Subjective: * Chief Complaints: * ???1. Screening. * Medical History:? Objective: * Vitals:? Assessment: * Assessment: 1.?Encounter for screening c olonoscopy - Z12.11 (Primary)???2.?Colon polyps - K63.5???3.?Diverticulosis of large intestine without perforation or abscess without bleeding - K57.30???4.?Other hemorrhoids - K64.8??? Plan: * Treatment: * Procedure Codes:?14165 LESIO N REMOVAL COLONOSCOPY, Modifiers: 33 * * The named appointment provid er may or may not be the originator of this progress note, and it is not deemed complete until electronically signed by the appointment provider. Sign off status: Pending * Provider:?Josias Daly MD Date:? 024 Generated for Kena serra/Henrry/eTransmitting on:?02/02/2025 11:39 AM EDT
--- OUTSIDE RECORDS SUMMARY | 2025-02-02 11:40 | XMS_ITS | Patient Health Record ---
Author Organization [facility] Address [address] [place] [phone] Care Team Providers Care Seed Sorter Name Role Phone Familia River MD Primary Care Provider Josias Leos Unavailable [phone] Allergies No Known Allergies Reason For Referral No Information Medications Medication SIG (Take, Route, Frequency, Duration) Notes Start Date End Date Status Dulcolax (colon prep) 5 MG take at 3:00 p.m and 7:00p.m. Orally two tablets twice a day for one day for 1 day 10/21/2023 Active MiraLax (colon prep) 17 GM/SCOOP 1 238Gm bottle mixed with Gatorade or Crystal Light Orally begin at 5:00 p.m. the day before the procedure for 1 day 10/21/2023 Active Atorvastatin Calcium 40 MG Oral for 90 Active Lantus SoloStar 100 UNIT/ML Subcutaneous for 42 Active metFORMIN HCl 500 MG TAKE 2 TABLETS BY M OUTH TWICE DAILY Oral for 90 Active Metoprolol Succinate ER 50 MG TAKE 1 TABLET BY MOUTH ONCE DAILY Oral for 90 Active EQ Aspirin Adult Low Dose 81 MG Oral for 90 Active Metoprolol Tartrate 25 MG Oral for 90 Active Clopidogrel Bisulfate 75 MG Oral for 90 Active Social History Tobacco Use: Social History Observation Description Date Details (start date - stop date) Former Smoker NA - NA Tobacco Use/Smoking Question Answer Notes Patient is a former smoker How long has it been since you last smoked? 1-5 years Alcohol Screen Question Answer Notes Did you have a drink contain ing alcohol in the past year? Yes How often did you have a dri nk containing alcohol in the past year? Never (0 point) How many drinks did you have on a typical day when you were drinking in the past year? 1 or 2 drinks (0 point) Points 0 Interpretation Negative Section Notes: 2019 quit tobacco; occ alcohol From [place] originally Speaks Palestinian Mandarin Problems Problem Type SNOMED Code ICD Code Onset Dates Problem Status W/U Status Risk Notes Problem 675819439 Colon cancer screening (Z12.11) Active confirmed Problem Diverticular disease of colon (290830256) Diverticulosis of large intestine without perforation or abscess without bleeding (K57.30) Active confirmed Problem 528150567225661 Preprocedural examination (Z01.818) Active confirmed Plan Of Treatment Pending Test Test Name Order Date Pathology 12/15/2023 Future Test Test Name Order Date COLONOSCOPY 12/14/2023 Insurance Providers Payer Name Payer Address Payer Phone Subscriber Number Group Number Insured Name Patient Relationship to Insured Coverage Start Date Coverage End Date [facility] [address] [address] [place], [place] [id number] ANASTACIO SOL Self - patient is the insured Medical (General) History Medical History History ICD Code CAD-sees at [facility] before hi s CABG Hyperlipidemia IDDM Hypertension Denies CVA,Lung disease,renal disease Surgical History Surgery Date(Month/Year) 4V-CABG 2019
--- OUTSIDE RECORDS SUMMARY | 2025-02-02 11:40 | XMS_ITS ---
Author Organization [facility] Address [address] [place] [phone] Care Team Providers Care Security Rep Name Role Phone Familia River MD Primary Care Provider Josias Leos Unavailable [phone] REASON FOR VISIT bowel prep Medications Medication SIG (Take, Route, Frequency, Duration) [...] the procedure for 1 day 10/21/2023 Active Encounters Encounter Location Date Provider Diagnosis [facility] [address] [phone] 10/21/2023 Josias Daly Plan Of Treatment Medication Medication Name Sig Start Date Stop Date Notes Dulcolax (colon prep) 5 MG take at 3:00 p.m and 7:00p.m. Orally two tablets twice a day for one day for 1 day 10/21/2023 MiraLax (colon prep) 17 GM/SCOOP 1 238Gm bottle mixed with Gatorade or Crystal Light Orally begin at 5:00 p.m. the day before the procedure for 1 day 10/21/2023 Progress Notes * SHANNAN SOLOB:1970 (53 y o M)Acc No.[id number]:10/21/2023 Patient:?ANASTACIO SOL :1970???Age:53 Y???Sex:Male Address:[address] [place] [address] , [place], [address] * Refills? Start MiraLax (colon prep) Powder, 17 GM/SCOOP, Orally, 1, 1 238Gm bottle mixed with Gatorade or Crystal Light, begin at 5:00 p.m. the day before the procedure, 1 day, Refills=0 Start Dulcolax (colon prep) Tablet Delayed Release, 5 MG, Orally, 4, take at 3:00 p.m and 7:00p.m., two tablets twice a day for one day, 1 day, Refills=0 Subjective: * Chief Complaints: * ???Bowel prep * Medical History:? * Surgical History:? * Hospitalization/Major Diagno stic Procedure:? * Medications:? Objective: Assessment: Plan: * Treatment: * Procedure Codes:? * true * Date:? Generated for Kena serra/Henrry/Kaylie on:?02/02/2025 11:40 AM EDT
== END 2025-02-02 11:47 | disposition home or self-care (01) ==
LOC: HO.HCS 10:37
PROVIDERS: PCP Internal Medicine; Visit Provider Internal Medicine Cardiovascular Disease
DX: Z95.1 Presence of aortocoronary bypass graft (principal); R07.9 Chest pain, unspecified
CPT/HCPCS: 93010; 99214

== ENCOUNTER → 2025-02-02 10:37 | Outpatient (BNVA) | payer OTHER, SELFPAY | PROVIDERS: PCP Internal Medicine; Visit Provider Internal Medicine Cardiovascular Disease | DX: R07.9 Chest pain, unspecified (principal); Z95.1 Presence of aortocoronary bypass graft; Z87.891 Personal history of nicotine dependence | CPT/HCPCS: 93005; 99212 ==

== ENCOUNTER 2025-02-16 13:28 | Outpatient (AMB) | payer OTHER, SELFPAY ==
[2025-02-16 13:06] VITALS: BP 120/70; PULSE 83; TEMP 36.3; O2SAT 97; BMI 28.1
--- NOTE | 2025-02-16 13:06 | MHC.PC.OV ---
Vital Signs 02/16/25 13:06 Height 5 ft 7.5 in Weight 182 lb BMI 28.1 BP 120/70 Blood Pressure Location Lt brachial Position Sitting Pulse 83 Pulse Source Pulse Oximeter Temp 97.4 F Temp Source Axillary Pulse Oximetry (%) 97 Oxygen Delivery Method Room Air Intake Visit Reasons: Routine Lead Neurodiagnostic Technologist Required: No Accompanied by: Self / Same As Patient Allergies No Known Allergies [No Known Allergies*] Allergy (Verified 02/16/25 14:23) Medication List - Last Reconciled 02/16/25 by Bruno Hess MD aspirin 81 mg PO DAILY atorvastatin 40 mg PO DAILY ezetimibe 10 mg PO DAILY FreeStyle Lancets (lancets) three times daily NS insulin glargine (Lantus Solostar U-100 Insulin) 36 units (0.36 mL) subcut QPM 90 days metformin 500 mg PO BID metoprolol succinate ER 50 mg PO DAILY miscellaneous medical supply 1 ea miscellaneous TID miscellaneous medical supply Freestyle Lancets- use to check glucose three times daily. Tobacco use date assessed: 02/16/25 Dental Screening Dental Screen Date: 02/16/25 Did you have a dental visit in the last 12 months?: No Did you have a dental problem in the last 6 months where you did not have access to dental care?: No PFSH Medical History HTN (hypertension) Diabetes Hypercholesteremia CAD (coronary artery disease) Surgical History S/P CABG x 4 History of cardiac cath Family History (Updated 02/16/25 @ 13:44 by Judith Mitchell MA) Father Diabetes Mother No problems noted. Social History Housing: House Alcohol intake: current Alcohol intake frequency: 0-2 drinks per day Alcohol type: wine Patient Tobacco Use Status: Never used Tobacco Years Smoked: 20 +/- e-Cigarette/Vaping Use: Never Used service: No Current occupational status: unemployed Cognitive needs: No Hearing needs: No Vision needs: No Questionnaire PHQ-9 Over the last 2 weeks, how often have you been bothered by any of the following problems? 1. Little interest or pleasure in doing things: not at all 2. Feeling down, depressed, or hopeless: several days 3. Trouble falling or staying asleep, or sleeping too much: several days 4. Feeling tired or having little energy: not at all 5. Poor appetite or overeating: not at all 6. Feeling bad about yourself - or that you are a failure or have let yourself or your family down: not at all 7. Trouble concentrating on things, such as reading the newspaper or watching television: not at all 8. Moving or speaking so slowly that other people could have noticed. Or the opposite - being so fidgety or restless that you have been moving around a lot more than usual: not at all 9. Thoughts that you would be better off or of hurting yourself in some way: not at all Total score: 2 Source: Developed by Drs. Josias Cota, Katie Patterson, Gabriele Bryant and colleagues, with an educational juan f from [email or web address]. Thrive Questionnaire Date Thrive assessed: 02/16/25 I am a: Patient Within the past 12 months, did the food you bought not last and you didn't have the money to get more?: Never true Within the past 12 months, did you worry whether your food would run out before you got money to buy more?: Never true Do you have trouble paying for medicines?: No Do you have trouble getting transportation to medical appointments?: No Do you have trouble paying your heating and electricity bill?: No Do you have trouble taking care of your child, family member or friend?: No Do you have trouble with day-to-day activities such as bathing, preparing meals, shopping, managing finances, etc.?: No Are you currently unemployed and looking for a job?: No Are you interested in more education?: No THRIVE Score: 0 AUDIT C Alcohol Use Questionnaire (AUDIT-C) 1. How often do you have a drink containing alcohol?: Monthly or less 2. How many drinks containing alcohol do you have on a typical day when you are drinking?: 1 or 2 3. How often do you have six or more drinks on one occasion?: Less than monthly Total Score: 2 LIU-7 AMB Questionnaire LIU-7 Date LIU - 7 assessed: 02/16/25 Feeling nervous, anxious, or on edge: 1 = Several days Not being able to stop or control worryin = Not at all Worrying too much about different things: 0 = Not at all Trouble relaxin = Not at all Being so restless that it is hard to sit still: 0 = Not at all Becoming easily annoyed or irritable: 0 = Not at all Feeling afraid as if something awful might happen: 0 = Not at all Total LIU-7 score (0-4 normal; 5-9 mild; 10-14 moderate; 15-21 severe): 1 Source: Developed by Drs. Josias Cota, Katie Patterson, Gabriele Bryant and colleagues, with an educational juan f from [email or web address]. Physical exam (Primary Care) Vital Signs: Last Vital Signs Temp 97.4 F 02/16/25 13:06 Pulse 83 02/16/25 13:06 BP 120/70 02/16/25 13:06 Pulse Ox 97 02/16/25 13:06 Oxygen Delivery Method Room Air 02/16/25 13:06 BMI result Body Mass Index 28.1 Tobacco/Smoking Status: Tobacco use Status Tobacco use date assessed 02/16/25 02/16/25 13:08 Patient Tobacco Use Status Never used Tobacco 02/16/25 13:47 e-Cigarette/Vaping Use Never Used 02/16/25 13:47 PHQ-9: PHQ-9 Score PHQ-9: Total score 2 02/16/25 13:47 Thrive Assessment: Date of Thrive Assessment Date Thrive assessed 02/16/25 02/16/25 13:08 Coding Level of Care Code New Pt Level 4 (84426) Complex EM visit Add On G2211 Diagnoses Stable angina I20.8 Assessment & Plan Assessment & Plan (1) Stable angina: Code(s): I20.8 - Other forms of angina pectoris Category: Medical Plan: History of Present Illness - The patient is a 54-year-old male presenting with past history of chest and left arm pain. - Currently has no symptoms of pain or diaphoresis - Scheduled for nuclear stress test on April 11 to assess cardiac health. - No current aspirin use; taking daily cholesterol-lowering medication. - Additional medication taken is noted for heart protection with mild blood pressure reduction. - History of thoracotomy at age 23. - Concerns about potential blockage of blood vessels. - Symptoms of dizziness and heartache are aggravated by physical exertion. 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 - Unemployed due to dizziness and heart pain triggered by work activities. - Non-smoker. - Obtains medications from [facility] in [place]. Review of Systems - Cardiovascular: Reports chest and left arm pain; experiences severe heart pain at night with sweating. - Musculoskeletal: Reports left arm pain. - Neurological: Reports dizziness during physical activity. Physical Exam General: Cooperative and healthy appearing Nutritional Appearance: Well nourished Orientation/consciousness: Patient oriented x3 Limitations: No limitations Head: Normal to inspection General: Appearance normal, both eyes and all related structures Neck: Normal visual inspection Chest: Normal palpation of entire chest wall Respiratory: Normal respiratory effort Neurology: Patient oriented x3 Results - Tests: Scheduled nuclear stress test on April 11. Plan 1. Chest Pain - Nuclear stress test scheduled for April 11. - Prescription for sublingual nitroglycerin for severe pain. - Follow-up with cardiology. 2. Left Arm Pain - Monitor symptoms for cardiac relation. 3. History Of Myocardial Infarction - Monitor with stress test. 4. Dyslipidemia - Daily cholesterol-lowering medication adherence. 5. Hypertension - Continue heart-protecting medication. 6. Status Post-Thoracotomy - Documented for historical context. Discussion Notes During the visit, I discussed with the patient the concerns related to his recent chest and left arm pain. I explained the importance of the upcoming nuclear stress test scheduled for April 11 to assess his cardiac condition. We reviewed his current medication regimen, emphasizing the need for adherence to the cholesterol-lowering medication prescribed. I prescribed sublingual nitroglycerin for use during episodes of severe chest pain, instructing him on its appropriate use. We discussed the potential need for further cardiac interventions pending the results of the stress test. The patient was informed about the symptoms that should prompt urgent medical attention and agreed to follow up with cardiology for further management. Patient Instructions - Take your prescribed cholesterol-lowering medication once daily. - Use sublingual nitroglycerin as directed for severe chest pain. - Attend your scheduled nuclear stress test on April 11. - Follow up with your cheese specialist after the stress test. - Seek immediate medical attention if experiencing severe chest pain, difficulty breathing, or dizziness. - Continue to monitor symptoms and avoid activities that induce dizziness or heartache. Plan Patient was advised to proceed to the ER if chest pain symptoms occur. The translation service on the IPAD was not working. Limited translation thru google translate. Medications: New nitroglycerin do not exceed 3 doses per episode 0.3 mg sublingual Q5M PRN 60 tabs 0RF chest pain
--- OUTSIDE RECORDS SUMMARY | 2025-02-16 14:22 | XMS_ITS ---
Author Organization [facility] Address [address] [place] [phone] Care Team Providers Care Post Production Assistant Name Role Phone Familia River MD Primary Care Provider Josias Leos Unavailable [phone] REASON FOR VISIT ?Clearance note for his 12/14 procedure? Encounters Encounter Location Date Provider Diagnosis [facility] [address] [place] [phone] 12/14/2023 Josias Daly Plan Of Treatment No Information Progress Notes * SHANNAN SOLOB:1970 (53 y o M)Acc No.[id number]:12/14/2023 Patient:?EBENEZER ANASTACIO :1970???Age:53 Y???Sex:Male Address:[address] [place] [address], [address] * true * Date:? Generated for Kena serra/Henrry/eTransmitting on:?02/16/2025 02:21 PM EDT
== END 2025-02-16 14:19 | disposition home or self-care (01) ==
LOC: HO.HMCHD 13:28
PROVIDERS: PCP Internal Medicine; Visit Provider Internal Medicine
DX: I20.89 Other forms of angina pectoris (principal)

== ENCOUNTER → 2025-02-16 13:28 | Outpatient (BNVA) | payer OTHER, SELFPAY | PROVIDERS: PCP Internal Medicine; Visit Provider Internal Medicine | DX: I20.89 Other forms of angina pectoris (principal); M79.602 Pain in left arm; E78.5 Hyperlipidemia, unspecified; I10 Essential (primary) hypertension; I25.2 Old myocardial infarction; Z13.30 Encounter for screening examination for mental health and behavioral disorders, unspecified | CPT/HCPCS: 99202 ==

== ENCOUNTER → 2025-04-11 08:00 | Outpatient (REF) | payer OTHER, SELFPAY ==
--- OUTSIDE RECORDS SUMMARY | 2023-12-15 09:20 | XMS_ITS ---
Author Organization [facility] Address [address] [place] [phone] Care Team Providers Care Fashion Intern Name Role Phone Perico (RETIRED) Familia LIN Primary Care Provide Josias Washington Unavailable [phone] REASON FOR VISIT screening Problems Problem Type SNOMED Code ICD Code Onset Dates Problem Status W/U Status Risk Notes Problem Diverticulosis o f large intestine without perforation or abscess without bleeding (K57.30) Active confirmed Encounters Encounter Location Date Provider Diagnosis [facility] [place] [address] [place] [phone] 12/15/2023 Josias Daly Encounter for scre ening [...] * SHANNAN SOLOB:1970 (54 y o M)Acc No.[id number]:12/15/2023 COLON WITH MAC Patient: ANASTACIO FRANCO Provider: Rodney Daly MD :1970 A ge:53 Y S ex:Male Date:12/15/2023 Address:[address] [place] [address], [id number] Pcp:Familia River (RETIRED )MD Subjective: * Chief [...] MD Date: 0 12/15/2023 Generated for Kena serra/Henrry/Norahransmitting on: 0 04/11/2025 08:04 AM EDT
--- NOTE | ~2025-04-11 | NM_ITS ---
EXERCISE MYOCARDIAL PERFUSION STUDY INDICATION: Chest pain to evaluate for myocardial ischemia TECHNIQUE: The patient was brought in for an exercise perfusion study on 04/11/2025. Patient performed exercise as per Jaquan protocol and was injected 30 mCi of sestamibi once target heart rate was achieved. Images were obtained using the SPECT gamma camera interlaced with the gating device. Images were obtained in supine position. Resting perfusion study was performed on 04/12/2025. Patient was administered 30 mCi of sestamibi intravenously at rest. Images were then obtained in supine position. Images were processed with the software and compared side to side in short axis, horizontal long axis and vertical long axis views. FINDINGS: Raw images were reviewed The stress perfusion study showed nonattenuated images show mildly to moderately reduced uptake in the mid and basal inferior and inferolateral wall of the LV myocardium. Remainder of the LV myocardium is normally perfused. Attenuated corrected images show normal uptake of radiotracer in all segments of the LV myocardium. The gated study shows normal LV systolic function with calculated LVEF of 65%. LV cavity is normal in size. The gated study shows normal systolic wall thickening and contraction of segments. Resting study shows no change in perfusion pattern compared to stress perfusion study. Gating at rest reveals normal systolic wall motion with ejection fraction at greater than 60%. The findings are consistent with no reversible defect suggestive of ischemia. Likely normal myocardial perfusion. GA/GA cardiolite stress test IMPRESSION: 1. Myocardial perfusion imaging study shows normal myocardial perfusion. 2. Gated LVEF is 65%. 3. Transient ischemic dilatation not present. EKG revealed negative for ischemia. Electronically signed by: Keaton Rodriguez MD 04/13/2025 01:21 PM EDT
--- NOTE | 2025-04-11 08:04 | CA_ITS ---
Acquisition Time: 2025-04-11 08:58:39 Total Exercise Time: 00:07:05 Test Indications: CP,Dyspnea Medications: ASA ATORVASTATIN METFORMIN METOPROLOL Protocol: MASOUD Max HR: 144 BPM 85% of Pred: 168 BPM Max BP: 174/82 mmHG Max Work Load: 8.5 METS Exercise stress test with exercise 7 mins 5 secs of Masoud Protocol, achieving 85% MPHR, with reporst of SOB, no chest pain, without any arrythmias, with normotensive response to exercise. Without any EKG changes meeting criteria for ischemia; T wave inversions inferiorly and anterolaterally at baseline. In recovery, breathing returned to baseline. Nuclear images pending. Test reviewed with Dr. Thompson. Referred By: Stevie Thompson Electronically Signed By: Mervin Bailey
== END ==
LOC: HO.CARD 08:00
PROVIDERS: Visit Provider Internal Medicine Cardiovascular Disease
DX: R07.9 Chest pain, unspecified (principal)
CPT/HCPCS: 78452; 93017; A9500; J0280; J2785

== ENCOUNTER → 2025-04-11 08:04 | Outpatient (BNV) | payer OTHER, SELFPAY | DX: R07.9 Chest pain, unspecified (principal) | CPT/HCPCS: 78452; 93016; 93018 ==

== ENCOUNTER 2025-05-06 09:25 | Outpatient (AMB) | payer OTHER, SELFPAY ==
--- OUTSIDE RECORDS SUMMARY | 2023-12-15 09:20 | XMS_ITS ---
Author Organization [facility] Address [address] [place] [id number] Care Team Providers Care [employer] Senior Sergeant Name Role Phone Perico (RETIRED) Familia LIN Primary Care Provide r Josias Neal Unavailable [phone] REASON FOR VISIT screening Problems Problem Type SNOMED Code ICD Code Onset Dates Problem Status W/U Status Risk Notes Problem Diverticular disease of colon (419337387) Diverticulosis of large intestine without perforation or abscess without bleeding (K57.30) Active confirmed Encounters Encounter Location Date Provider Diagnosis [facility] [place] [address] [place] [phone] 12/15/2023 Josias Daly Encounter for scre ening colonoscopy Z12.11 ; Colon polyps K63.5 ; Diverticulosis of large intestine without perforation or abscess without bleeding K57.30 and Other hemorrhoids K64.8 Assessments Encounter Date Diagnosis (ICD Code) Assessment Notes Treatment Notes Treatment Clinical Notes Section Notes 12/15/2023 Encounter for screening colonoscopy (ICD-10 - Z12.11) 12/15/2023 Colon polyps (ICD-10 - K63.5) 12/15/2023 Diverticulosis of large intestine without perforation or abscess without bleeding (ICD-10 - K57.30) 12/15/2023 Other hemorrhoids (ICD-10 - K64.8) Plan Of Treatment No Information Progress Notes * SHANNAN SOLOB:1970 (54 y o M)Acc No.[id number]:12/15/2023 COLON WITH MAC Patient: ANASTACIO FRANCO Provider: Rodney Daly MD :1970 A ge:53 Y S ex:Male Date:12/15/2023 Address:[address] [place] [address] Pcp:Familia River (RETIRED )MD Subjective: * Chief Complaints: * 1 . Screening. * Medical History: Objective: * Vitals: Assessment: * Assessment: 1. E ncounter for screening colonoscopy - Z12.11 (Primary) 2 . C olon polyps - K63.5 3 . D iverticulosis of large intestine without perforation or abscess without bleeding - K57.30 4 . O ther hemorrhoids - K64.8 Plan: * Treatment: * Procedure Codes: 4 5385 LESION REMOVAL COLONOSCOPY, Modifiers: 33 * * The named appointment provid er may or may not be the originator of this progress note, and it is not deemed complete until electronically signed by the appointment provider. Sign off status: Pending * Provider: Rodney Daly MD Date: 0 12/15/2023 Generated for Kena serra/Henrry/Stacyitting on: 0 05/06/2025 09:39 AM EDT
--- NOTE | 2025-05-06 09:29 | A.OFFVIS_ITS ---
Vital Signs 05/06/25 09:30 Height 5 ft 7.5 in Weight 182 lb 1.629 oz BMI 28.1 BP 114/72 Blood Pressure Location Lt brachial Position Sitting Pulse 70 Pulse Source Pulse Oximeter Intake Visit Reasons: follow up NM stress test Lineman Service Or Work Dispatcher Required: Yes Lineman Service Or Work Dispatcher Language: Mandarin Bulgarian Lineman Service Or Work Dispatcher Name: voice Allergies No Known Allergies (No Known Allergies*) Allergy (Verified 05/06/25 09:34) Medication List - Last Reconciled 05/06/25 by FARHEEN Coffman aspirin 81 mg PO DAILY atorvastatin 40 mg PO DAILY ezetimibe 10 mg PO DAILY FreeStyle Lancets (lancets) three times daily NS insulin glargine (Lantus Solostar U-100 Insulin) 36 units (0.36 mL) subcut QPM 90 days metformin 500 mg PO BID metoprolol succinate ER 50 mg PO DAILY miscellaneous medical supply 1 ea miscellaneous TID miscellaneous medical supply Freestyle Lancets- use to check glucose three times daily. nitroglycerin 0.3 mg sublingual Q5M PRN HPI HPI follow up NM stress test: Details: Vince is a 54-year-old male with past medical history of hyperlipidemia, CAD, 4 vessel coronary artery bypass grafting 06/2021 who reported chest discomfort on last visit,underwent a nuclear stress test and presents for follow-up. Today he reports that he does get intermittent discomfort in his left shoulder and at times in his upper back. His symptoms come and go and may be muscular related. He is showing me the various exercises that he does including lifting and bending. No chest discomfort brought on by walking. No shortness of breath, PND, orthopnea or edema. Denies palpitation, lightheadedness. Taking all meds as directed. No bleeding issues reported. Walks 40 min daily for exercise. Certified Mandarin/Bulgarian educational interpreter used. [facility] Medical History HTN (hypertension) Diabetes Hypercholesteremia CAD (coronary artery disease) Surgical History S/P CABG x 4 History of cardiac cath Family History Father Diabetes Mother No problems noted. Social History Housing: House Alcohol intake: current Alcohol intake frequency: 0-2 drinks per day Alcohol type: wine Patient Tobacco Use Status: Never used Tobacco Years Smoked: 20 +/- e-Cigarette/Vaping Use: Never Used service: No Current occupational status: unemployed Cognitive needs: No Hearing needs: No Vision needs: No Review of Systems Const All systems reviewed & are unremarkable except as noted in HPI and below Reports fatigue (with activity) ENT Denies dizziness Card Denies chest pain, Denies chest pain at rest, Denies chest pain with activity, Denies rapid heart rate, Denies pedal edema, Denies edema, Denies leg edema, Denies lightheadedness, Denies palpitations, Denies dyspnea, Denies dyspnea on exertion and Denies orthopnea Resp Denies cough, Denies dyspnea and Denies dyspnea on exertion GI Denies hematochezia and Denies change in stool character Musc Denies abnormal gait, Denies limited range of motion, Denies muscle cramps, Denies muscle weakness, Denies numbness, Denies radiating pain into limb, Denies stiffness and Denies tingling Neuro Denies abnormal gait, Denies dizziness, Denies numbness and Denies tingling Endo Reports fatigue (with activity) and Denies palpitations Physical Exam Vital Signs: Last Vital Signs Pulse 70 05/06/25 09:30 BP 114/72 05/06/25 09:30 BMI result Body Mass Index 28.1 Const General: cooperative, healthy appearing, comfortable and no acute distress Orientation/consciousness: patient oriented x3 Neck Neck: Yes normal visual inspection Resp Effort & Inspection: normal respiratory effort Auscultation: clear to auscultation bilaterally, no crackles, no rales, no rhonchi and no wheezes Cardio Jugular venous distension: no JVD Rate: regular rate Rhythm: regular rhythm Heart sounds: S1 normal heart sound present, S2 normal heart sound present, no murmurs and no rubs Neuro General: patient oriented x3 Extrem General: Yes normal to inspection and No no pedal edema Psych Appearance: grossly normal Mental Status: mental status grossly normal Speech and movement: Normal speech and movement present Assessment & Plan Assessment & Plan (1) CAD (coronary artery disease): Code(s): I25.10 - Atherosclerotic heart disease of [place]asta coronary artery without angina pectoris Category: Medical Plan: History of 4 vessel coronary artery bypass grafting on 06/25/2021. Since that time he has reported intermittent atypical chest discomfort and reported sob with activity. Exercise nuclear stress test on 12/11/23 showed normal myocardial perfusion imaging. Echocardiogram done 12/10/23 showed EF 60-65%, no valve or regional wall motion abnormalities. He recently reported some left chest and shoulder discomfort and had a repeat nuclear stress test 04/11/2025 which again was normal. Signs and symptoms of angina reviewed with him. Continue aspirin indefinitely. Continue atorvastatin and Zetia with ideal LDL goal less than 55. Continue metoprolol. Cardiology follow-up 6 months, sooner if needed. (2) S/P CABG x 4: Comment: 06/25/2021, 4 vessel Coronary artery bypass grafting, hodges to mid LAD, SVG to distal RCA, left radial artery to OM and SVG to ramus Code(s): Z95.1 - Presence of aortocoronary bypass graft Category: Surgical Plan: as above (3) Chest pain: Code(s): R07.9 - Chest pain, unspecified Category: Medical Plan: Resolved- may be musculoskeletal. (4) Hyperlipidemia: Code(s): E78.5 - Hyperlipidemia, unspecified Category: Medical Plan: [place] LDL goal less than 55. Continue atorvastatin and Zetia. Plan recheck of fasting lipids before next visit. Plan I discussed with the patient that his cardiac stress test results were normal, indicating good blood flow in the coronary arteries. We reviewed his current medications and confirmed they are appropriate for his condition. I advised him to continue his exercise routine and to monitor for any changes in symptoms. . Orders: Orders Comprehensive Met. Panel Today I25.10 - Atherosclerotic heart disease of mentasta coronary artery without angina pectoris Lipid Panel Today I25.10 - Atherosclerotic heart disease of mentasta coronary artery without angina pectoris Patient Instructions: - Continue taking your medications as prescribed. - Stay active with regular walking, but monitor for symptoms. - Follow up in six months or sooner if symptoms worsen. Patient was informed and verbally consented to the use of an ambient scribe for clinic note documentation during this visit. Visit time spent on chart review, interview, assessment, orders, documentation. Coding Level of Care Code Est Pt Level 4 (05569) Complex EM visit Add On G2211 Diagnoses CAD (coronary artery disease) I25.10 S/P CABG x 4 Z95.1 Chest pain R07.9 Hyperlipidemia E78.5 Time Spent (min) 28
[2025-05-06 09:30] VITALS: BP 114/72; PULSE 70; BMI 28.1
== END 2025-05-06 10:01 | disposition home or self-care (01) ==
LOC: HO.HCS 09:26
PROVIDERS: Visit Provider Nurse Practitioner Family
DX: I25.10 Atherosclerotic heart disease of native coronary artery without angina pectoris (principal); Z95.1 Presence of aortocoronary bypass graft; R07.9 Chest pain, unspecified; E78.5 Hyperlipidemia, unspecified
CPT/HCPCS: 99214

== ENCOUNTER → 2025-05-06 09:25 | Outpatient (BNVA) | payer OTHER, SELFPAY | PROVIDERS: Visit Provider Nurse Practitioner Family | DX: Z71.2 Person consulting for explanation of examination or test findings (principal); I25.10 Atherosclerotic heart disease of native coronary artery without angina pectoris; Z95.1 Presence of aortocoronary bypass graft; R07.9 Chest pain, unspecified; E78.5 Hyperlipidemia, unspecified | CPT/HCPCS: 99212 ==

== ENCOUNTER 2025-06-01 11:22 | Outpatient (AMB) | payer OTHER, SELFPAY ==
--- OUTSIDE RECORDS SUMMARY | 2023-12-15 09:20 | XMS_ITS ---
Author Organization [facility] Address [address] [place] [id number] Care Team Providers Care Clinical Operations Consultant Name Role Phone Perico (RETIRED) Familia LIN Primary Care Provide r Josias Neal Unavailable [phone] REASON FOR VISIT screening Problems Problem Type SNOMED Code ICD Code Onset Dates Problem Status W/U Status Risk Notes Problem Diverticular disease of colon (949578991) Diverticulosis of large intestine without perforation or abscess without bleeding (K57.30) Active confirmed Encounters Encounter Location Date Provider [place] [facility] [place] [address] [place] [phone] 12/15/2023 Josias Daly Encounter for scre ening [...] * SHANNAN SOLOB:1970 (54 y o M)Acc No.[id number]:12/15/2023 COLON WITH MAC Patient: ANASTACIO FRANCO Provider: Rodney Daly MD :1970 A ge:53 Y S ex:Male Date:12/15/2023 Address:[address] [place] [address] Pcp:Familia River (RETIRED )MD Subjective: * Chief [...] 12/15/2023 Generated for Kena serra/Henrry/Stacyitting on: 0 06/01/2025 02:29 PM EDT
--- NOTE | 2025-06-01 11:25 | A.OFFPC_ITS ---
Vital Signs 06/01/25 11:37 Height 5 ft Weight 180 lb BMI 35.2 BP 98/60 Blood Pressure Location Rt brachial Position Sitting Respiration 18 Pulse 74 Pulse Source Pulse Oximeter Temp 98.8 F Temp Source Temporal Artery Scan Pulse Oximetry (%) 97 Oxygen Delivery Method Room Air Intake Visit Reasons: routine Machine Tester Required: Yes Accompanied by: Self / Same As Patient Allergies No Known Allergies (No Known Allergies*) Allergy (Verified 06/01/25 11:30) Tobacco use date assessed: 06/01/25 Dental Screening Dental Screen Date: 02/16/25 Did you have a dental visit in the last 12 months?: Yes HPI HPI Comments History of Present Illness Details The patient is a 54-year-old male presenting with weakness and chest pain. The weakness started when performing activities that require mild exertion, such as lifting a half packet of water, and is associated with chest pain. The patient has a history of coronary artery disease and previously underwent heart surgery. Recent butadiene convertor operator evaluation indicated that heart fun ction is stable, and there are no immediate cardiac concerns. Despite the heart's status, patient-reported weakness persists and worsens with inactivity. He was advised to avoid heavy lifting but to maintain mild physical activity such as daily walking for 30 to 40 minutes, although this sometimes leads to shortness of breath. The occurrence of shortness of breath was noted to be restrictive, impacting his physical activity. Additionally, the patient experiences constipation, characterized by hard and dry bowel movements occurring almost daily. There is no change in urination pattern, and no diarrhea is reported. Medical History: - Coronary Artery Disease - Type 2 Diabetes Mellitus - Hyperlipidemia Surgical History: - Heart surgery (specifics not indicated but related to coronary artery disease) Medications: - Atorvastatin for Hyperlipidemia - Ezetimibe for Hyperlipidemia - Metformin for Diabetes Mellitus Type 2 - Metoprolol Succinate for Heart status - Nitroglycerin as needed for chest pain - Aspirin prophylaxis Diagnostic Results: - Cardiovascular evaluation shows stable heart function Social: - Daily walking for 30 to 40 minutes, de spite experiencing some shortness of breath - Constipation issues addressed with [facility] Medical History HTN (hypertension) Diabetes Hypercholesteremia CAD (coronary artery disease) Surgical History S/P CABG x 4 History of cardiac cath Family History Father Diabetes Mother No problems noted. Social History Housing: House Alcohol intake: current Alcohol intake frequency: 0-2 drinks per day Alcohol type: wine Patient Tobacco Use Status: Former Tobacco user Tobacco use type: Cigarette Years Smoked: 20 +/- e-Cigarette/Vaping Use: Never Used service: No Current occupational status: unemployed Cognitive needs: No Hearing needs: No Vision needs: No Questionnaire Thrive Questionnaire Date Thrive assessed: 02/16/25 AUDIT C Alcohol Use Questionnaire (AUDIT-C) 1. How often do you have a drink containing alcohol?: 2-3 times a week 2. How many drinks containing alcohol do you have on a typical day when you are drinking?: 1 or 2 Total Score: 3 LIU-7 AMB Questionnaire LIU-7 Date LIU - 7 assessed: 02/16/25 Source: Developed by Drs. Josias Cota, Katie Patterson, Gabriele Bryant and colleagues, with an educational juan f from [employer]. Review of Systems Const Details: - Cardiovascular: Reports chest pain with mild exertion - Respiratory: Reports shortness of breath with activity - Gastrointestinal: Reports constipation, denies diarrhea - Genitourinary: Denies changes in urination All systems reviewed & are unremarkable as reviewed in HPI except as above Physical exam (Primary Care) Vital Signs: Last Vital Signs Temp 98.8 F 06/01/25 11:37 Pulse 74 06/01/25 11:37 Resp 18 06/01/25 11:37 BP 98/60 06/01/25 11:37 Pulse Ox 97 06/01/25 11:37 Oxygen Delivery Method Room Air 06/01/25 11:37 BMI result Body Mass Index 35.2 Tobacco/Smoking Status: Tobacco use Status Tobacco use date assessed 06/01/25 06/01/25 11:41 Patient Tobacco Use Status Former Tobacco user 06/01/25 11:41 Tobacco use type Cigarette 06/01/25 11:41 e-Cigarette/Vaping Use Never Used 06/01/25 11:28 Thrive Assessment: Date of Thrive Assessment Date Thrive assessed 02/16/25 06/01/25 11:28 Const Other: General: +Alert and oriented, Well nourished, No acute distress. Eye: Pupils are equal, round and reactive to light, Intact accommodation, Extraocular movements are intact, Normal conjunctiva, Vision unchanged. HENT: Normocephalic, Atraumatic, Tympanic membranes are clear, Normal hearing, Oral mucosa is moist, No pharyngeal erythema, Ear canals patent. Respiratory: Lungs CTA bilaterally, No wheeze, Respirations are non-labored, Shortness of breath noted with exertion. Cardiovascular: Regular rate, Regular rhythm, S1 auscultated, S2 auscultated, No murmur, Good pulses equal in all extremities, Normal peripheral perfusion, No edema. Gastrointestinal: Soft, Non-tender, Non-distended, Normal bowel sounds, No organomegaly, Constipation noted, Bowel movements are hard and dry. Musculoskeletal: Normal range of motion, Normal strength, No tenderness, No swelling, No deformity, Normal gait. Integumentary: Warm, Dry, [place], Intact. Neurologic: Alert, Oriented, Normal sensory, Normal motor function, No focal defects, Cranial Nerves II-XII are grossly intact, Normal deep tendon reflexes. Psychiatric: Cooperative, Appropriate mood & affect, Normal judgment. 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 insulin use: without watermelon harvesting supervisor use Diabetes mellitus complication status: without complication S/P CABG x 4 Z95.1 Chest pain, unspecified type R07.9 Chest pain type: unspecified Hyperlipidemia, unspecified hyperlipidemia type E78.5 Hyperlipidemia type: unspecified Constipation K59.00 Assessment & Plan Assessment & Plan (1) Diabetes: Comment: [place] Code(s): E11.9 - Type 2 diabetes mellitus without complications Category: Medical Qualifiers: Diabetes mellitus type: type 2 Diabetes mellitus watermelon harvesting supervisor insulin use: without watermelon harvesting supervisor use Diabetes mellitus complication status: without complication Qualified Code(s): E11.9 - Type 2 diabetes mellitus without complications Plan: - Continue current Metformin therapy. Monitor diabetes levels with blood work. (2) S/P CABG x 4: Comment: 06/25/2021, 4 vessel Coronary artery bypass grafting, hodges to mid LAD, SVG to distal RCA, left radial artery to OM and SVG to ramus - Review and continue medications including Metoprolol Succinate, Aspirin, and Nitroglycerin as needed for chest pain. - Referral to cardiac rehabilitation to improve stamina and address symptoms of weakness and breathlessness. Code(s): Z95.1 - Presence of aortocoronary bypass graft Category: Surgical (3) Chest pain: Comment: - Ruled out as non cardiac in nature Code(s): R07.9 - Chest pain, unspecified Category: Medical Qualifiers: Chest pain type: unspecified Qualified Code(s): R07.9 - Chest pain, unspecified (4) Hyperlipidemia: Comment: - Continue Atorvastatin and Ezetimibe. Order lab work to evaluate cholesterol levels. - Last LDL acceptable Code(s): E78.5 - Hyperlipidemia, unspecified Category: Medical Qualifiers: Hyperlipidemia type: unspecified Qualified Code(s): E78.5 - Hyp erlipidemia, unspecified (5) Constipation: Code(s): K59.00 - Constipation, unspecified Plan: - Initiate a high-fiber diet and MiraLax use in the morning to alleviate constipation. Consider twice daily usage if symptoms persist. Plan During our conversation, we reviewed and confirmed that while there are no current concerns with heart function, maintaining activity and preventing further weakness requires involvement in regular safe exercises like walking. A cardiac rehabilitation referral was discussed to aid in improving endurance and handling shortness of breath. We addressed constipation with dietary suggestions and laxative usage. We discussed the need for ongoing monitoring of diabetes and cholesterol levels through blood work to ensure proper management. The benefits and potential side effects of all current and new recommendations were reviewed, ensuring understanding and consent for the treatment and lifestyle changes. Future follow-up was planned in six months, with immediate interventions in case of symptom aggravation. Orders: Orders Complete Blood Count Auto Diff Today E11.9 - Type 2 diabetes mellitus without complications, E78.5 - Hyperlipidemia, unspecified Hemoglobin A1c Today E11.9 - Type 2 diabetes mellitus without complications, E78.5 - Hyperlipidemia, unspecified Lipid Panel Today E11.9 - Type 2 diabetes mellitus without complications, E78.5 - Hyperlipidemia, unspecified TSH reflex Free T4 Today E11.9 - Type 2 diabetes mellitus without complications, E78.5 - Hyperlipidemia, unspecified Cardiac Rehab Today R07.9 - Chest pain, unspecified, Z95.1 - Presence of aortocoronary bypass graft Comprehensive Met. Panel Today E11.9 - Type 2 diabetes mellitus without complications, E78.5 - Hyperlipidemia, unspecified Vitamin D 25-OH Total Today E11.9 - Type 2 diabetes mellitus without complications, E78.5 - Hyperlipidemia, unspecified Medications: New polyethylene glycol 3350 (Miralax) 17 grams PO BID 510 grams 0RF Patient Instructions: - Continue daily walking for 30-40 minutes as tolerated. - Follow a high-fiber diet and use MiraLax once in the morning; increase to evening use if needed. - Take all prescribed medications as directed. - Attend cardiac rehabilitation sessions as scheduled to enhance stamina and reduce symptoms. - Return for blood work and the next routine checkup as advised. - Report any new or worsening symptoms immediately.
[2025-06-01 11:37] VITALS: BP 98/60; PULSE 74; RESP 18; TEMP 37.1; O2SAT 97; BMI 35.2
--- OUTSIDE RECORDS SUMMARY | 2025-06-01 14:29 | XMS_ITS | Patient Health Record ---
Author Organization [facility] Address [address] [place] [id number] Care Team Providers Care Low Voltage Electrician Name Role Phone Perico (RETIRED) Familia LIN Primary Care Provide r Unavailable Josias Daly Unavailable [phone] Allergies No Known Allergies Reason For Referral [...] Notes: 2019 quit tobacco; occ alcohol From [place] originally Speaks Mexican Mandarin Problems Problem Type SNOMED Code ICD Code Onset Dates Problem Status W/U Status Risk Notes Problem 017930086 Colon cancer screening (Z12.11) Active confirmed Problem Diverticular disease of colon (176729596) Diverticulosis of large intestine without perforation or abscess without bleeding (K57.30) Active confirmed Problem [id number] Preprocedural examination (Z01.818) Active confirmed Plan Of Treatment Pending Test Test Name Order Date Pathology 12/15/2023 Future Test Test Name Order Date COLONOSCOPY 12/14/2023 Insurance Providers Payer Name Payer Address Payer Phone Subscriber Number Group Number Insured Name Patient Relationship to Insured Coverage Start Date Coverage End Date [facility] [address] [address] [place], [place] [id number] ANASTACIO SOL Self - patient is the insured Medical (General) History Medical History History ICD Code CAD-sees at [facility] [place] before hi s CABG Hyperlipidemia IDDM Hypertension Denies CVA,Lung disease,renal disease Surgical History Surgery Date(Month/Year) 4V-CABG 2019
== END 2025-06-01 12:14 | disposition home or self-care (01) ==
LOC: HO.HMCHD 11:22
PROVIDERS: PCP Student in an Organized Health Care Education/Training Program; Visit Provider Student in an Organized Health Care Education/Training Program
DX: E11.69 Type 2 diabetes mellitus with other specified complication (principal); Z95.1 Presence of aortocoronary bypass graft; R07.9 Chest pain, unspecified; E78.5 Hyperlipidemia, unspecified; K59.00 Constipation, unspecified

== ENCOUNTER 2025-06-01 11:22 | Outpatient (REF) | payer OTHER, SELFPAY ==
[2025-06-01 12:28] LABS: MANUAL DIFF FLAG NO
[2025-06-01 12:37] LABS: Hematocrit 45.3 % (42.0-52.0); Hemoglobin 16.3 g/dl (14.0-18.0); Imm Gran Abs Auto 0.02 X10*3/uL (0.00-0.03); Imm Gran Pct Auto 0.2 % (0.0-0.4); Lymphocytes Absolute Auto 2.7 X10*3/uL (1.2-4.9); Mean Corpuscular HGB Conc 36.0 g/dl (31.0-36.0); Mean Corpuscular Hemoglobin 32.4 pg (27.0-33.0); Mean Corpuscular Volume 90.1 fL (80.0-98.0); NRBC Abs Auto 0.000 X10*3/uL (0.0-0.012); NRBC Pct Auto 0.0 /100WBC (0.0-0.2); Platelet Count 180 X10*3/uL (160-400); Red Blood Count 5.03 X10*6/uL (4.60-5.80); White Blood Count 8.4 X10*3/uL (4.8-10.8)
[2025-06-01 13:23] LABS: Alanine Aminotransferase 60 U/L (0-40); Albumin Level 4.6 g/dL (3.5-5.0); Alkaline Phosphatase 83 U/L (39-117); Anion Gap 12 (12-20); Aspartate Amino Transferase 26 U/L (5-37); Blood Urea Nitrogen 12 mg/dL (9-16); Calcium 9.3 mg/dL (8.4-10.2); Carbon Dioxide 28 mmol/L (22-29); Chloride 108 mmol/L (96-108); Cholesterol 86 mg/dL (<200); Estimated Glomerular Filt Rate > 60; HDL Cholesterol 33 mg/dL (>40); Potassium 4.8 mmol/L (3.3-5.1); Sodium 143 mmol/L (135-145); Total Protein 7.3 g/dL (6.5-8.0); Triglycerides 51 mg/dL (<150)
== END 2025-06-01 11:23 | disposition home or self-care (01) ==
LOC: HO.LAB 11:22
PROVIDERS: PCP Student in an Organized Health Care Education/Training Program; Visit Provider Student in an Organized Health Care Education/Training Program
DX: E11.9 Type 2 diabetes mellitus without complications (principal); E78.5 Hyperlipidemia, unspecified; R07.9 Chest pain, unspecified; K59.00 Constipation, unspecified; Z95.1 Presence of aortocoronary bypass graft
CPT/HCPCS: 36415; 80053; 80061; 82306; 83036; 84443; 85025; 99212